=== PATIENT | female | born 1930 | race Caucasian/White ===

== ENCOUNTER 2017-11-03 11:24 | Inpatient (IN) | payer OTHER ==
[2017-11-03] VITALS (9 sets, daily range): BP systolic 109–188; BP diastolic 54–88; PULSE 60–86; RESP 16–20; TEMP 97–98.5; O2SAT 97–99
[~2017-11-03] VITALS: Ht 160 cm; Wt 43.4 kg
[~2017-11-03 11:24] MED LIST: DABI150 PO; ENAL20TA81 PO; LEVA500T PO; PROT40TA PO; TAB-TAB PO
[2017-11-03] MEDS ORDERED: PANTOPRAZOLE SODIUM 40 MG VIAL IVP ONE (12:00)
--- NOTE | 2017-11-03 12:04 | PD ---
HPI Chief Complaint: Abnormal Results Time Seen by Provider: 11:40 Travel History International Travel<30 days: No Contact w/Intl Traveler<30days: No Traveled to known affect area: No History of Present Illness HPI 87yo F with PMH of afib on xarelto, HTN was sent here by her PMD Dr. Carroll for low hemoglobin of 6.4 on routine blood work drawn 2 days ago. Pt denies any black stool, fever, cough, chest pain, sob, n/v, abdominal pain, focal weakness or numbness. Pt does have swelling in both her feet. Said she has had GI bleeds before but she has never had a colonoscopy and does not ever want one. PFSH Past Medical History Blood Disorders: No Anxiety: Yes Depression: Yes Heart Rhythm Problems: Yes (a-fib ) Cancer: No Cardiovascular Problems: Yes High Cholesterol: Yes Chest Pain: Yes Congestive Heart Failure: No Diminished Hearing: No Endocrine: No Genitourinary: No Hypertension: Yes Immune Disorder: No Implanted Vascular Access Dvce: Yes Musculoskeletal: No Neurologic: No Psychiatric: Yes Reproductive: No Respiratory: No ?: Not Dilation and Curettage (D&C): Yes Past Surgical History AICD: No Arteriovenous Shunt: No Cardiac Surgery: Yes (pace maker ) Ear Surgery: No Endocrine Surgery: No Eye Surgery: Yes (cataracts LEFT SIDE) Genitourinary Surgery: No Gynecologic Surgery: Yes (d/c) Insulin Pump: No Joint Replacement: No Oral Surgery: No Pacemaker: Yes Thoracic Surgery: No Other Surgery: Yes Social History Alcohol Use: No Tobacco Use: No Substance Use: No Allergies-Medications (Allergen,Severity, Reaction): Coded Allergies: penicillin G (Unverified Allergy, Severe, diarrhea, 11/03/17) Reported Meds & Prescriptions Reported Meds & Active Scripts Active Reported [glaucoma drops] 1 Drop OP BID Losartan (Losartan Potassium) 100 Mg Tab 100 Mg PO HS Xarelto (Rivaroxaban) 20 Mg Tab 20 Mg PO DAILY Review of Systems Except as stated in HPI: all other systems reviewed are Neg Physical Exam Narrative GENERAL: 87yo F not in distress. SKIN: Focused skin assessment warm/dry. HEAD: Atraumatic. Normocephalic. EYES: Pupils equal and round. No scleral icterus. No injection or drainage. CARDIOVASCULAR: Regular rate and rhythm. No murmur appreciated. RESPIRATORY: No accessory muscle use. Clear to auscultation. Breath sounds equal bilaterally. GASTROINTESTINAL: Abdomen soft, non-tender, nondistended. RECTAL: Brown stool, positive hemaprompt. MUSCULOSKELETAL: No obvious deformities. No clubbing. No cyanosis. No edema. NEUROLOGICAL: Awake and alert. No obvious cranial nerve deficits. Motor grossly within normal limits. Normal speech. PSYCHIATRIC: Appropriate mood and affect; insight and judgment normal. Data Data Last Documented VS Vital Signs Date Time Temp Pulse Resp B/P (MAP) Pulse Ox O2 Delivery O2 Flow Rate FiO2 11/03/17 12:39 77 18 150/62 (91) 97 Room Air 11/03/17 11:28 98.5 Orders Orders Basic Metabolic Panel (Bmp) (11/03/17 11:54) Complete Blood Count With Diff (11/03/17 11:54) Prothrombin Time / Inr (Pt) (11/03/17 11:54) Act Partial Throm Time (Ptt) (11/03/17 11:54) Type And Screen (11/03/17 11:54) Pantoprazole Inj (Protonix Inj) (11/03/17 12:00) Electrocardiogram (11/03/17 ) ^ Lab Follow Up (11/03/17 12:20) Prothrombin Complex Conc Inj (Kcentra In (11/03/17 14:00) Blood Product Administration (11/03/17 12:20) Sodium Chlor 0.9% 250 Ml Inj (Ns 250 Ml (11/03/17 12:30) Consult Cardiology (11/03/17 ) Consult Gastroenterology (11/03/17 ) Admit Order (Ed Use Only) (11/03/17 13:13) Labs Laboratory Tests Test 11/03/17 12:08 White Blood Count 4.2 TH/MM3 Red Blood Count 3.19 MIL/MM3 Hemoglobin 6.4 GM/DL Hematocrit 21.7 % Mean Corpuscular Volume 67.9 FL Mean Corpuscular Hemoglobin 19.9 PG Mean Corpuscular Hemoglobin Concent 29.3 % Red Cell Distribution Width 17.0 % Platelet Count 407 TH/MM3 Mean Platelet Volume 7.2 FL Neutrophils (%) (Auto) 65.4 % Lymphocytes (%) (Auto) 21.1 % Monocytes (%) (Auto) 10.0 % Eosinophils (%) (Auto) 2.7 % Basophils (%) (Auto) 0.8 % Neutrophils # (Auto) 2.8 TH/MM3 Lymphocytes # (Auto) 0.9 TH/MM3 Monocytes # (Auto) 0.4 TH/MM3 Eosinophils # (Auto) 0.1 TH/MM3 Basophils # (Auto) 0.0 TH/MM3 CBC Comment AUTO DIFF Differential Comment AUTO DIFF CONFIRMED Target Cells 1+ Keratocytes OCC Prothrombin Time 10.7 SEC Prothromb Time International Ratio 1.1 RATIO Activated Partial Thromboplast Time 24.7 SEC Blood Urea Nitrogen 18 MG/DL Creatinine 0.69 MG/DL Random Glucose 109 MG/DL Calcium Level 8.3 MG/DL Sodium Level 135 MEQ/L Potassium Level 4.0 MEQ/L Chloride Level 103 MEQ/L Carbon Dioxide Level 26.8 MEQ/L Anion Gap 5 MEQ/L Estimat Glomerular Filtration Rate 80 ML/MIN MDM Medical Decision Making Medical Screen Exam Complete: Yes Emergency Medical Condition: Yes Interpretation(s) EKG: Paced rhythm. No concordance. ST depression V6 only. Differential Diagnosis Diverticulitis vs. AV malformation vs. hemorrhoid vs. upper GI bleed Narrative Course 87yo F was brought in here for low hemoglobin. Pt has positive hemaprompt and on xarelto. Last dose of xarelto was last night. Labs reviewed, no leukocytosis. H/H low at 6.4/21.7. Last H/H was from 2011 and it was . BMP unremarkable. Pt given K-centra to reverse anticoagulation and will transfuse one unit of PRBC for now. Pt is well appearing with stable vital signs. Will admit patient and consult GI although pt may not want any procedures. 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 Lindsey. Will place consult. Discussed with Dr. Farrell's PA and accepted to her service. Pt has already been admitted but nurse wants to send urine since pt now said she has some dysuria and gave a urine sample. UA sent. UA showed positive nitrite, hospitalist said she will write for antibiotics. HemaPrompt Point of Care Internal Pos. & Neg. Controls: Passed Fecal Specimen Occult Blood: Positive Diagnosis Primary Impression: GI bleed Qualified Codes: K92.2 - Gastrointestinal hemorrhage, unspecified Admitting Information Admitting Physician Requests: Admit Elza Ferreira DO November 03, 2017 12:04
[2017-11-03 12:15] LABS: AUTOMATED NEUTROPHIL # 2.8 TH/MM3 (1.8-7.7); BASOPHIL % 0.8 % (0.0-2.0); EOSINOPHIL # 0.1 TH/MM3 (0-0.4); EOSINOPHIL % 2.7 % (0.0-4.0); HEMATOCRIT 21.7 % (35.0-46.0); LYMPH % 21.1 % (9.0-44.0); LYMPHOCYTE # 0.9 TH/MM3 (1.0-4.8); MEAN CELL VOLUME 67.9 FL (80.0-100.0); MEAN CORPUSCULAR HEMOGLOBIN 19.9 PG (27.0-34.0); MEAN PLATELET VOLUME 7.2 FL (7.0-11.0); MONOCYTE # 0.4 TH/MM3 (0-0.9); NEUT % 65.4 % (16.0-70.0); PLATELET COUNT 407 TH/MM3 (150-450); RED BLOOD COUNT 3.19 MIL/MM3 (4.00-5.30); WHITE BLOOD COUNT 4.2 TH/MM3 (4.0-11.0)
[2017-11-03 12:16] LABS: MEAN CORPUSCULAR HGB CONC 29.3 % (32.0-36.0)
[2017-11-03 12:18] LABS: HEMOGLOBIN 6.4 GM/DL (11.6-15.3)
[2017-11-03 12:28] LABS: CALCIUM 8.3 MG/DL (8.5-10.1)
[2017-11-03 12:29] LABS: BICARBONATE 26.8 MEQ/L (21.0-32.0); INTERNATIONAL NORMALIZED RATIO 1.1 RATIO; PROTHROMBIN TIME - PATIENT 10.7 SEC (9.8-11.6)
[2017-11-03] MEDS ORDERED: SODIUM CHLOR 0.9% 250 ML INJ 250 ML IV ONE ×2 (12:30→15:30)
[2017-11-03 12:32] LABS: CREATININE 0.69 MG/DL (0.50-1.00)
[2017-11-03 12:42] LABS: KERATOCYTES OCC (NORMAL); TARGET CELLS 1+ (NORMAL)
[2017-11-03] MEDS ORDERED: XARE20TA PO (13:07)
[2017-11-03] MEDS ORDERED: glaucoma drops OP (13:07)
[2017-11-03] MEDS ORDERED: LOSA100T PO (13:07)
[2017-11-03] MEDS ORDERED: SENNOSIDES 8.6 MG TAB PO PRN (13:45)
[2017-11-03] MEDS ORDERED: BISACODYL 10 MG SUPP RECTAL PRN (13:45)
[2017-11-03] MEDS ORDERED: ONDANSETRON HCL 4 MG/2 ML VIAL IVP PRN (13:45)
[2017-11-03] MEDS ORDERED: ACETAMINOPHEN 325 MG TAB PO PRN (13:45)
[2017-11-03] MEDS ORDERED: MAGNESIUM HYDROXIDE SUSP 30 ML CUP PO PRN (13:45)
[2017-11-03] MEDS ORDERED: NALOXONE HCL 0.4 MG/ML AMP IV PUSH PRN (13:45)
--- NOTE | 2017-11-03 13:46 | HHI.HP ---
HPI Service [facility] Primary Care Physician Suad Carroll MD Admission Diagnosis GI bleed on xarelto Diagnoses: (1) GI bleed Chief Complaint: Anemia Dark stools Travel History International Travel<30 Days: No Contact w/Intl Traveler <30 Da: No Traveled to Known Affected Are: No History of Present Illness This is a pleasant 87-year-old female patient with a known medical history of A. fib on anticoagulation, hypertension hyperlipidemia who presented to the ED with a hemoglobin of 6.4. Patient visited her PCP office this week and was called with results of anemia and sent here to the ED. Patient does state that over the past couple months she has noticed black stools with occasional bright red blood when she wipes. Patient denies any other associated symptoms such as lightheadedness, dizziness. She does admit to increasing fatigue and sleeping more often. Patient has been on Xarelto for chronic atrial fibrillation, patient is followed with Dr. Lindsey cardiology. Denies any recent fever, chills, cough, chest pain, shortness of breath, nausea, vomiting, diarrhea, abdominal pain or dysuria. Does admit to bilateral lower extremity swelling. Patient lives at home with her daughter. PCP Dr. Carroll. Review of Systems Constitutional: COMPLAINS OF: Fatigue, DENIES: Fever, Chills Eyes: DENIES: Diplopia Respiratory: DENIES: Cough, Sputum production, Shortness of breath Cardiovascular: DENIES: Chest pain, Palpitations Gastrointestinal: COMPLAINS OF: Black stools, DENIES: Abdominal pain, Bloody stools, Constipation, Diarrhea, Nausea, Vomiting Musculoskeletal: DENIES: Joint pain Hematologic/lymphatic: DENIES: Bruising Neurologic: DENIES: Abnormal gait Psychiatric: DENIES: Anxiety Except as stated in HPI: all other systems reviewed are Neg Past Family Social History Past Medical History Atrial fibrillation on Coumadin Anxiety depression Hyperlipidemia Hypertension Past Surgical History Pacemaker placement Left side cataracts Tonsillectomy Appendectomy Reported Medications Reported [glaucoma drops] 1 Drop OP BID Losartan (Losartan Potassium) 100 Mg Tab 100 Mg PO HS Xarelto (Rivaroxaban) 20 Mg Tab 20 Mg PO DAILY Allergies: Coded Allergies: penicillin G (Unverified Allergy, Severe, diarrhea, 11/03/17) Active Ordered Medications Current Medications Medications (Trade) Dose Ordered Sig/Robert Route Start Time Stop Time Status Last Admin Sodium Chloride 250 ml @ 15 mls/hr ONCE ONCE IV 11/03/17 12:30 11/04/17 05:09 (NS Flush) 2 ml UNSCH PRN IV FLUSH 11/03/17 13:45 (NS Flush) 2 ml BID IV FLUSH 11/03/17 21:00 (Tylenol) 650 mg Q4H PRN PO 11/03/17 13:45 (Zofran Inj) 4 mg Q6H PRN IVP 11/03/17 13:45 (Narcan Inj) 0.4 mg UNSCH PRN IV PUSH 11/03/17 13:45 (Destiney-Colace) 1 tab BID PO 11/03/17 21:00 (Milk Of Magnesia Liq) 30 ml Q12H PRN PO 11/03/17 13:45 (Senokot) 17.2 mg Q12H PRN PO 11/03/17 13:45 (Dulcolax Supp) 10 mg DAILY PRN RECTAL 11/03/17 13:45 (Protonix Inj) 40 mg Q12H IV PUSH 11/03/17 16:00 Sodium Chloride 250 ml @ 15 mls/hr ONCE ONCE IV 11/03/17 15:30 11/04/17 08:09 (Cozaar) 100 mg HS PO 11/03/17 21:00 (Catapres) 0.1 mg Q6H PRN PO 11/03/17 15:30 Family History Denies any significant family medical history. Social History Does admit to smoking 8 cigarettes per day. Denies any alcohol or illicit drug use. Physical Exam Vital Signs Vital Signs Date Time Temp Pulse Resp B/P (MAP) Pulse Ox O2 Delivery O2 Flow Rate FiO2 11/03/17 12:39 77 18 150/62 (91) 97 Room Air 11/03/17 11:50 97 Room Air 11/03/17 11:28 98.5 80 16 152/65 (94) 98 Physical Exam GENERAL: Well-developed, well-nourished elderly female patient in [facility]. SKIN: Warm and dry. No rash. HEAD: Normocephalic. Atraumatic. EYES: Pupils equal and round. No scleral icterus. No injection or drainage. ENT: No nasal bleeding or discharge. Mucous membranes pink and moist. NECK: Supple. Trachea midline. CARDIOVASCULAR: Regular rate and rhythm. S1, S2 noted. No murmur appreciated. RESPIRATORY: No accessory muscle use. Clear to auscultation. Breath sounds equal bilaterally. GASTROINTESTINAL: Abdomen soft, non-tender, nondistended. Normoactive bowel sounds x4. MUSCULOSKELETAL: No obvious deformities. Extremities without clubbing, cyanosis. Bilateral lower extremity edema, 2+. NEUROLOGICAL: Awake and alert. No obvious cranial nerve deficits. Motor grossly within normal limits. 5/5 muscle strength in bilateral upper and lower extremities. Normal speech. PSYCHIATRIC: Appropriate mood and affect; insight and judgment normal. Laboratory Laboratory Tests Test 11/03/17 12:08 11/03/17 13:30 White Blood Count 4.2 Red Blood Count 3.19 Hemoglobin 6.4 Hematocrit 21.7 Mean Corpuscular Volume 67.9 Mean Corpuscular Hemoglobin 19.9 Mean Corpuscular Hemoglobin Concent 29.3 Red Cell Distribution Width 17.0 Platelet Count 407 Mean Platelet Volume 7.2 Neutrophils (%) (Auto) 65.4 Lymphocytes (%) (Auto) 21.1 Monocytes (%) (Auto) 10.0 Eosinophils (%) (Auto) 2.7 Basophils (%) (Auto) 0.8 Neutrophils # (Auto) 2.8 Lymphocytes # (Auto) 0.9 Monocytes # (Auto) 0.4 Eosinophils # (Auto) 0.1 Basophils # (Auto) 0.0 CBC Comment AUTO DIFF Differential Comment AUTO DIFF CONFIRMED Target Cells 1+ Keratocytes OCC Prothrombin Time 10.7 Prothromb Time International Ratio 1.1 Activated Partial Thromboplast Time 24.7 Blood Urea Nitrogen 18 Creatinine 0.69 Random Glucose 109 Calcium Level 8.3 Sodium Level 135 Potassium Level 4.0 Chloride Level 103 Carbon Dioxide Level 26.8 Anion Gap 5 Estimat Glomerular Filtration Rate 80 Result Diagram: 11/03/17 1208 11/03/17 1208 Septic Shock Reassessment Septic shock perfusion: reassessment completed Caprini VTE Risk Assessment Caprini VTE Risk Assessment: Mod/High Risk (score >= 2) Caprini Risk Assessment Model Point Value = 1 Point Value = 2 Point Value = 3 Point Value = 5 Age 41-60 Minor surgery BMI > 25 kg/m2 Swollen legs Varicose veins or History of unexplained or recurrent spontaneous Oral contraceptives or hormone replacement Sepsis (< 1 month) Serious lung disease, including pneumonia (< 1 month) Abnormal pulmonary function Acute myocardial infarction Congestive heart failure (< 1 month) History of inflammatory bowel disease Medical patient at bed rest Age 61-74 Arthroscopic surgery Major open surgery (> 45 min) Laparoscopic surgery (> 45 min) Malignancy Confined to bed (> 72 hours) Immobilizing plaster cast Central venous access Age >= 75 History of VTE Family history of VTE Factor V Leiden Prothrombin [id number] Lupus anticoagulant Anticardiolipin antibodies Elevated serum homocysteine Heparin-induced thrombocytopenia Other congenital or acquired thrombophilia Stroke (< 1 month) Elective arthroplasty Hip, pelvis, or leg fracture Acute spinal cord injury (< 1 month) Prophylaxis Regimen Total Risk Factor Score Risk Level Prophylaxis Regimen 0-1 Low Early ambulation 2 Moderate Order ONE of the following: *Sequential Compression Device (SCD) *Heparin 5000 units SQ BID 3-4 Higher Order ONE of the following medications: *Heparin 5000 units SQ TID *Enoxaparin/Lovenox 40 mg SQ daily (WT < 150 kg, CrCl > 30 mL/min) *Enoxaparin/Lovenox 30 mg SQ daily (WT < 150 kg, CrCl > 10-29 mL/min) *Enoxaparin/Lovenox 30 mg SQ BID (WT < 150 kg, CrCl > 30 mL/min) AND/OR *Sequential Compression Device (SCD) 5 or more Highest Order ONE of the following medications: *Heparin 5000 units SQ TID (Preferred with Epidurals) *Enoxaparin/Lovenox 40 mg SQ daily (WT < 150 kg, CrCl > 30 mL/min) *Enoxaparin/Lovenox 30 mg SQ daily (WT < 150 kg, CrCl > 10-29 mL/min) *Enoxaparin/Lovenox 30 mg SQ BID (WT < 150 kg, CrCl > 30 mL/min) AND *Sequential Compression Device (SCD) Assessment and Plan Problem List: (1) GI bleed ICD Code: K92.2 - Gastrointestinal hemorrhage, unspecified Status: Acute Assessment and Plan This is a pleasant 87-year-old female patient with a known medical history of A. fib on anticoagulation, hypertension hyperlipidemia who presented to the ED with a hemoglobin of 6.4. Patient visited her PCP office this week and was called with results of anemia and sent here to the ED. Acute blood loss secondary to GI bleed with normocytic normochromic anemia. - Hemoglobin 6.4/hematocrit 21.7 on presentation. With black stools. Was given K Centra in ED. - Consult placed to GI, appreciate input recommendations. Patient is refusing colonoscopy and EGD if needed. - Type and screen, transfuse 2 units PRBC. Trend H&H. Monitor for any active bleeding. Monitor vital signs. Blood pressure has been stable. - Monitor for fluid overload. Lasix given in between PRBC transfusion. - Protonix IV BID. Abnormal UA with presence of leukocyte esterase and white blood cells. Culture pending. Follow. IV Cipro, patient allergic to penicillins. Atrial fibrillation, chronic: On Xarelto at home. On hold due to GI bleed and acute blood loss. Continue cardiac telemetry. Monitor. Hypertension, chronic: Elevated on presentation. Continue home medications. Monitor BP trends. Clonidine PRN as needed. DVT Prophylaxis: SCDs. Hold chemical prophylaxis due to GI bleed. Physician Certification 2 Midnight Certification Type: Admission for Inpatient Services Order for Inpatient Services The services are ordered in accordance with Medicare regulations or non- Medicare payer requirements, as applicable. In the case of services not specified as inpatient-only, they are appropriately provided as inpatient services in accordance with the 2-midnight benchmark. Estimated LOS (days): 3 3 days is the estimated time the patient will need to remain in the hospital, assuming treatment plan goals are met and no additional complications. Post-Hospital Plan: Not yet determined Problem Qualifiers (1) GI bleed: Qualified Codes: K92.2 - Gastrointestinal hemorrhage, unspecified Sunni Ford November 03, 2017 13:45
[2017-11-03 13:48] LABS: BILIRUBIN, URINE NEG (NEG); BLOOD, URINE NEG (NEG); GLUCOSE,URINE NEG (NEG); KETONE, URINE NEG (NEG); NITRITE,URINE POS (NEG); URINE COLOR YELLOW (YELLW/STRAW); URINE LEUKOCYTE ESTERASE SMALL (NEG)
[2017-11-03 13:53] LABS: BACTERIA, URINE MANY /hpf; WHITE BLOOD CELL CLUMPS MOD
[2017-11-03] MEDS ORDERED: PROTHROMBIN COMPLEX IV ONE (14:00)
[2017-11-03] MEDS ORDERED: FUROSEMIDE 20 MG/2 ML VIAL IV PUSH ONE (15:30)
[2017-11-03] MEDS: PANTOPRAZOLE SODIUM 40 MG VIAL IV PUSH SCH (16:14)
[2017-11-03] MEDS ORDERED: FLUCONAZOLE 100 MG TAB PO ONE (16:45)
[2017-11-03] MEDS ORDERED: PILL SPLITTER OTHER PRN (17:00)
[2017-11-03] MEDS: cloNIDine HCL 0.1 MG TAB PO PRN (17:33)
[2017-11-03] MEDS: CIPROFLOXACIN 400 MG PREMIX 200 ML IV SCH (17:33)
[2017-11-03] MEDS: SODIUM CHLORIDE 0.9% FLUSH 10 ML FLUSH IV FLUSH SCH (19:44)
[2017-11-03 19:46] LABS: INTERNATIONAL NORMALIZED RATIO 1.1 RATIO; PROTHROMBIN TIME - PATIENT 10.7 SEC (9.8-11.6)
[2017-11-03] MEDS ORDERED: DIATRIZOATE MEGLUM/DIATRIZOATE SOD 9 ML CUP PO ONE (20:00)
[2017-11-03] MEDS: DOCUSATE SODIUM 50 MG/SENNA 8.6 MG TAB PO SCH (21:11)
[2017-11-03] MEDS: LOSARTAN 50 MG TAB PO SCH (21:11)
--- NOTE | 2017-11-03 22:54 | EKG ---
Date Performed: 11/03/2017 Time Performed: 12:09:26 PTAGE: 87 years EKG: ELECTRONIC VENTRICULAR PACEMAKER When compared to previous tracing, ventricular pacing is n ow Present. Atrial flutter previouslyn seen is no longer present. ABNORMAL RHYTHM ECG PREVIOUS TRACING : 04/10/2012 22.16 DOCTOR: Bret Zarate Interpretating Date/Time 11/03/2017 17:54:14
[2017-11-03] MEDS ORDERED: IOHEXOL 350 MG/ML 10 ML VIAL (for RAD DIAG) IVCONTRAST ONE (23:46)
[2017-11-04] VITALS (10 sets, daily range): BP systolic 140–178; BP diastolic 65–108; PULSE 64–89; RESP 16–20; TEMP 96–98.5; O2SAT 96–99
--- NOTE | 2017-11-04 00:13 | RADRPT ---
EXAM DATE/TIME: 11/03/2017 23:32 [place] COMPARISON: No previous studies available for comparison. INDICATIONS : Dark stools. IV CONTRAST: 75 cc Omnipaque 350 (iohexol) IV ORAL CONTRAST: Prescribed oral contrast ingested. RADIATION DOSE: 4.83 CTDIvol (mGy) MEDICAL HISTORY : Cardiovascular disease. Hypertension. SURGICAL HISTORY : Pacemaker. ENCOUNTER: Initial ACUITY: 4 - 6 days PAIN SCALE: 5/10 LOCATION: abdomen TECHNIQUE: Volumetric scanning of the abdomen and pelvis was performed. Using automated exposure control and ad justment of the mA and/or kV according to patient size, radiation dose was kept as low as reasonably achievable to obtain optimal diagnostic quality images. DICOM format image data is available electro nically for review and comparison. FINDINGS: LOWER LUNGS: Slight scarring in the lung bases, mainly on the left LIVER: Homogeneous density without lesion. There is no dilation of the biliary tree. No calcified gallston es. SPLEEN: Normal size without lesion. PANCREAS: Within normal limits. KIDNEYS: Upper pole anterior cortex right renal cyst. No evidence of stone or hydronephrosis. ADRENAL GLANDS: Slight low density nodular prominence of the left adrenal gland. VASCULAR: Extensive atherosclerotic change with dense intimal calcifications involving aorta and branch vessels . BOWEL/MESENTERY: Distal colonic diverticulosis. No abnormal dilatation, wall thickening or focal inflammatory changes. ABDOMINAL WALL: Within normal limits. RETROPERITONEUM: There is no lymphadenopathy. BLADDER: No wall thickening or mass. REPRODUCTIVE: Calcification in uterine fibroids. Coarse right adnexal calcification INGUINAL: Fluid containing left inguinal hernia MUSCULOSKELETAL: Within normal limits for patient age. CONCLUSION: No definite acute CT findings in the abdomen or pelvis. Juan Tierney MD on November 04, 2017 at 0:07 Board Certified Radiologist. This report was verified electronically.
[2017-11-04 02:33] LABS: INTERNATIONAL NORMALIZED RATIO 1.1 RATIO; PROTHROMBIN TIME - PATIENT 10.7 SEC (9.8-11.6)
[2017-11-04] MEDS: PANTOPRAZOLE SODIUM 40 MG VIAL IV PUSH SCH ×2 (04:00→15:57)
[2017-11-04] MEDS ORDERED: FUROSEMIDE 40 MG/4 ML VIAL ONE (04:36)
[2017-11-04] MEDS ORDERED: FUROSEMIDE 20 MG/2 ML VIAL IV PUSH ONE (05:00)
[2017-11-04] MEDS: DOCUSATE SODIUM 50 MG/SENNA 8.6 MG TAB PO SCH ×2 (08:04→20:41)
[2017-11-04] MEDS: SODIUM CHLORIDE 0.9% FLUSH 10 ML FLUSH IV FLUSH SCH ×2 (08:20→20:41)
[2017-11-04] MEDS: SODIUM CHLOR 0.9% 1000 ML INJ 1,000 ML IV SCH (10:15)
[2017-11-04 10:34] LABS: AUTOMATED NEUTROPHIL # 3.6 TH/MM3 (1.8-7.7); BASOPHIL % 0.3 % (0.0-2.0); EOSINOPHIL # 0.1 TH/MM3 (0-0.4); EOSINOPHIL % 1.6 % (0.0-4.0); HEMATOCRIT 32.4 % (35.0-46.0); LYMPH % 16.4 % (9.0-44.0); LYMPHOCYTE # 0.8 TH/MM3 (1.0-4.8); MEAN CELL VOLUME 74.2 FL (80.0-100.0); MEAN CORPUSCULAR HEMOGLOBIN 22.9 PG (27.0-34.0); MEAN CORPUSCULAR HGB CONC 30.9 % (32.0-36.0); MONO % 9.6 % (0.0-8.0); MONOCYTE # 0.5 TH/MM3 (0-0.9); NEUT % 72.1 % (16.0-70.0); PLATELET COUNT 393 TH/MM3 (150-450); RED BLOOD COUNT 4.36 MIL/MM3 (4.00-5.30); RED CELL DISTRIBUTION WIDTH 20.5 % (11.6-17.2)
[2017-11-04] MEDS ORDERED: RIVAROXABAN 20 MG TAB PO ONE (10:45)
[2017-11-04 10:54] LABS: BICARBONATE 32.4 MEQ/L (21.0-32.0); CALCIUM 8.7 MG/DL (8.5-10.1)
[2017-11-04 10:55] LABS: PROTHROMBIN TIME - PATIENT 10.4 SEC (9.8-11.6)
[2017-11-04 10:58] LABS: CREATININE 0.62 MG/DL (0.50-1.00)
--- NOTE | 2017-11-04 11:19 | HHI.PR ---
Subjective Remarks Follow-up GI bleed tolerate liquid diet with no abdominal pain, nausea or vomiting. No bowel movement overnight. Patient received 2 units PRBCs. Awaiting repeat H&H. Otherwise stable, will continue IV fluids. Await urine culture. Gastroenterology in to see patient today, will administer 1 dose Xarelto today. Possible colonoscopy on Monday morning. Objective Vitals Vital Signs Date Time Temp Pulse Resp B/P (MAP) Pulse Ox O2 Delivery O2 Flow Rate FiO2 11/04/17 08:00 98.5 64 17 173/78 (109) 98 11/04/17 05:20 97.6 64 18 156/80 11/04/17 04:32 96.0 77 16 160/108 97 11/04/17 02:10 96.3 68 18 140/71 96 11/04/17 00:00 96.2 72 20 145/67 (93) 99 11/03/17 20:00 97.0 60 20 109/54 (72) 99 11/03/17 19:53 97 21 11/03/17 18:28 129/83 (98) 11/03/17 16:00 97.2 86 20 188/79 (115) 99 11/03/17 15:21 99 21 11/03/17 15:00 85 17 168/88 (114) 11/03/17 14:10 75 18 172/75 (107) 99 Room Air 11/03/17 12:39 77 18 150/62 (91) 97 Room Air 11/03/17 11:50 97 Room Air 11/03/17 11:28 98.5 80 16 152/65 (94) 98 I/O 11/03/17 11/03/17 11/03/17 11/04/17 11/04/17 11/04/17 07:00 15:00 23:00 07:00 15:00 23:00 Intake Total 880 ml 940 ml 400 ml Output Total 300 ml 2100 ml Balance -300 ml 880 ml -1160 ml 400 ml Intake Oral 600 ml 240 ml IV Total 280 ml Packed Cells 400 ml 400 ml Blood Product IV Normal Saline Flush 300 ml Output Urine Total 300 ml 2100 ml # Voids 1 1 Result Diagram: 11/04/17 1015 11/04/17 1015 Imaging Last Impressions Abdomen/Pelvis CT 11/03/17 0000 Signed Impressions: Service Date/Time: Friday, November 03, 2017 23:32 - CONCLUSION: No definite acute CT findings in the abdomen or pelvis. Juan Tierney MD Objective Remarks GENERAL: Well-developed, well-nourished elderly female patient in [facility]. SKIN: Warm and dry. No rash. HEAD: Normocephalic. Atraumatic. EYES: Pupils equal and round. No scleral icterus. No injection or drainage. ENT: No nasal bleeding or discharge. Mucous membranes pink and moist. NECK: Supple. Trachea midline. CARDIOVASCULAR: Regular rate and rhythm. S1, S2 noted. No murmur appreciated. RESPIRATORY: No accessory muscle use. Clear to auscultation. Breath sounds equal bilaterally. GASTROINTESTINAL: Abdomen soft, non-tender, nondistended. Normoactive bowel sounds x4. MUSCULOSKELETAL: No obvious deformities. Extremities without clubbing, cyanosis. Bilateral lower extremity edema, 2+. NEUROLOGICAL: Awake and alert. No obvious cranial nerve deficits. Motor grossly within normal limits. 5/5 muscle strength in bilateral upper and lower extremities. Normal speech. PSYCHIATRIC: Appropriate mood and affect; insight and judgment normal. A/P Problem List: (1) GI bleed ICD Code: K92.2 - Gastrointestinal hemorrhage, unspecified Status: Acute Assessment and Plan This is a pleasant 87-year-old female patient with a known medical history of A. fib on anticoagulation, hypertension hyperlipidemia who presented to the ED with a hemoglobin of 6.4. Patient visited her PCP office this week and was called with results of anemia and sent here to the ED. Acute blood loss secondary to GI bleed with normocytic normochromic anemia. - Hemoglobin 6.4/hematocrit 21.7 on presentation. With black stools. Was given K Centra in ED. - Consult placed to GI, appreciate input recommendations. Gastroenterology in to see patient this morning plan for colonoscopy on Monday morning. Patient agreeable. We will give one-time dose of Xarelto today with clearance from GI. Hold tomorrow. - Type and screen, transfuse 2 units PRBC. Awaiting H&H this morning. Monitor for any active bleeding. Monitor vital signs. Blood pressure has been stable. - Monitor for fluid overload. Lasix given in between PRBC transfusion. - Protonix IV BID. - Supportive care. Abnormal UA with presence of leukocyte esterase and white blood cells. Culture pending. Follow. IV Cipro, patient allergic to penicillins. Will add Pyridium for dysuria complaints. Atrial fibrillation, chronic: On Xarelto at home. Will give one-time dose today , hold tomorrow for preparation and colonoscopy on Monday morning. Continue cardiac telemetry. Monitor. Has been stable. Hypertension, chronic: Elevated on presentation. Continue home medications. Monitor BP trends. Clonidine PRN as needed. Lower extremity edema, no history of CHF. Chest x-ray clear. Lasix given 1. Gentle hydration for UTI. Monitor overload. Encourage elevation. DVT Prophylaxis: SCDs. Hold chemical prophylaxis due to GI bleed. Problem Qualifiers (1) GI bleed: Qualified Codes: K92.2 - Gastrointestinal hemorrhage, unspecified Sunni Ford November 04, 2017 11:19
[2017-11-04 11:49] LABS: OVALOCYTES 1+ (NORMAL)
--- NOTE | 2017-11-04 12:00 | RADRPT ---
EXAM DATE/TIME: 11/04/2017 11:10 [place] COMPARISON: No previous studies available for comparison. INDICATIONS : Swelling. MEDICAL HISTORY : Cardiovascular disease. Hypertension. SURGICAL HISTORY : Pacemaker. ENCOUNTER: Initial ACUITY: 1 day PAIN SCORE: 0/10 LOCATION: Bilateral leg. TECHNIQUE: Venous ultrasound of the left and right leg was performed from the inguinal ligament to the proximal calf. Real-time, color Doppler and spectral tracing, compression and augmentation techniques were us ed. FINDINGS: RIGHT LEG: There is normal compressibility of the deep venous system from the inguinal region to the proximal ca lf. No echogenic clot is seen in the lumen of the common femoral, femoral, popliteal, and posterior tibial veins. There is a normal response of the venous system to proximal and distal augmentation an d respiration. LEFT LEG: There is normal compressibility of the deep venous system from the inguinal region to the proximal ca lf. No echogenic clot is seen in the lumen of the common femoral, femoral, popliteal, and posterior tibial veins. There is a normal response of the venous system to proximal and distal augmentation an d respiration. CONCLUSION: No DVT is identified within either lower extremity. Juan Masterson MD on November 04, 2017 at 11:57 Board Certified Radiologist. This report was verified electronically.
--- NOTE | 2017-11-04 12:15 | MB ---
cc: Gaye Gamez MD DATE: 11/04/2017 REFERRING PHYSICIAN: Dr. Farrell DATE OF : 1930 REASON FOR REFERRAL: Anemia. Questionable GI bleed. HISTORY OF PRESENT ILLNESS: Mrs. Bailey is an 87-year-old lady with multiple medical problems who came to the emergency room referred by her primary care doctor for a low hemoglobin. The patient states she had some black stool and occasional bright red blood per rectum a couple of months ago. She had some small episodes recently. Denies any nausea, vomiting, constipation, diarrhea or weight loss. She has a very good appetite. Never had an endoscopy or a colonoscopy. She states she refused in the past. The patient reports some fatigue and increased sleepiness recently, but no other symptoms. PAST MEDICAL HISTORY: Atrial fibrillation, high blood pressure, hyperlipidemia, anxiety. PAST SURGICAL HISTORY: Pacemaker placement, left side cataract surgery, tonsillectomy and appendectomy. MEDICATIONS: Glaucoma drops, Losartan, Xarelto. ALLERGIES: PENICILLIN. FAMILY HISTORY: No family history of colon cancer or any other GI pathology. SOCIAL HISTORY: Smokes 8 cigarettes per day. Denies any drug use or alcohol use. REVIEW OF SYSTEMS: CONSTITUTIONAL: She denies any fever, chills, weight loss or weight gain. ENT: No alteration of baseline hearing or visual acuity. PULMONARY: Denies any chest pain, shortness of breath. GASTROINTESTINAL: As above. GENITOURINARY: Denies dysuria, hematuria. HEMATOLOGICAL: No history of anemia or bleeding disorder. SKIN: No alteration of baseline skin lesion. NEUROLOGIC: No history of TIA or CVA kind of symptoms. PHYSICAL EXAMINATION: GENERAL: On clinical exam the patient is sitting comfortably in bed, in no acute distress. VITAL SIGNS: Temperature is 97.6, pulse is 64, respirations 18, blood pressure 156/80, saturation 97. HEENT: PERRLA. NECK: No JVD. No lymphadenopathy. CHEST: Clear to auscultation and palpation. HEART: S1, S2. No murmur. ABDOMEN: Soft, nontender. Bowel sounds are present. BEVERAGE HOST: Awake, alert, oriented x3. No focal signs identified. LABORATORY DATA: Her hemoglobin on admission was 6.4 with an MCV of 67, platelets 307. White count normal. PT/INR was normal. Her chemistry was essentially negative, was within normal limit. IMAGING STUDIES: She had a CT abdomen and pelvis which was suggestive of normal CT. ASSESSMENT: Ms. Bailey is a very pleasant 79-year-old lady admitted with anemia, seems to be microcytic, most likely chronic. No indication of active bleed at this time. RECOMMENDATION: Okay to give her regular food today, clear liquids tomorrow. Okay to put her on Xarelto today, hold tomorrow and Monday morning. EGD and colonoscopy in the morning. Discussed in detail about the risks and benefits, and she is agreeing with it. I would like to thank Dr. Sunni Johnson and Dr. Farrell for referring her to our office for consultation. Further recommendation will depend on the patient's clinical status and the above results. Gaye Gamez MD BSB/SB , 11:52 AM , 12:14 PM
[2017-11-04] MEDS: PHENAZOPYRIDINE HCL 100 MG TAB PO SCH ×2 (13:47→20:41)
[2017-11-04] MEDS: SODIUM CHLORIDE 0.9% FLUSH 10 ML FLUSH IV FLUSH PRN (15:59)
[2017-11-04] MEDS: CIPROFLOXACIN 400 MG PREMIX 200 ML IV SCH (16:51)
[2017-11-04 18:02] LABS: INTERNATIONAL NORMALIZED RATIO 1.2 RATIO; PROTHROMBIN TIME - PATIENT 12.3 SEC (9.8-11.6)
[2017-11-04] MEDS ORDERED: TIMO0.5S4 EACH EYE (18:29)
[2017-11-04] MEDS: LOSARTAN 50 MG TAB PO SCH (20:41)
[2017-11-04] MEDS: cloNIDine HCL 0.1 MG TAB PO PRN (20:45)
[2017-11-04 21:39] LABS: INTERNATIONAL NORMALIZED RATIO 1.1 RATIO; PROTHROMBIN TIME - PATIENT 11.2 SEC (9.8-11.6)
[2017-11-05] VITALS (9 sets, daily range): BP systolic 144–206; BP diastolic 67–85; PULSE 59–64; RESP 16–20; TEMP 95.9–98.6; O2SAT 95–99
[2017-11-05] MEDS: PANTOPRAZOLE SODIUM 40 MG VIAL IV PUSH SCH ×2 (04:36→15:32)
[2017-11-05] MEDS: SODIUM CHLORIDE 0.9% FLUSH 10 ML FLUSH IV FLUSH PRN ×2 (04:36→15:32)
[2017-11-05] MEDS: PHENAZOPYRIDINE HCL 100 MG TAB PO SCH ×3 (04:36→21:03)
[2017-11-05] MEDS ORDERED: PEG (High)/E-LYTE SOLN 4000 ML BTL PO ONE (05:45)
[2017-11-05] MEDS: TIMOLOL 0.5% EACH EYE SCH (08:30)
[2017-11-05] MEDS: DOCUSATE SODIUM 50 MG/SENNA 8.6 MG TAB PO SCH ×2 (08:32→20:56)
[2017-11-05 08:34] LABS: INTERNATIONAL NORMALIZED RATIO 1.1 RATIO; PROTHROMBIN TIME - PATIENT 11.1 SEC (9.8-11.6)
[2017-11-05] MEDS: SODIUM CHLORIDE 0.9% FLUSH 10 ML FLUSH IV FLUSH SCH ×2 (08:34→20:56)
--- NOTE | 2017-11-05 09:47 | HHI.PR ---
Subjective Remarks Follow-up GI bleed. Patient seen and examined, sitting up in chair comfortably no apparent distress. Status post 2 unit PRBC, hemoglobin stable. Denies any acute events. No pain. Tolerating p.o. intake, no abdominal pain, nausea or vomiting. Plan for colonoscopy tomorrow. Objective Vitals Vital Signs Date Time Temp Pulse Resp B/P (MAP) Pulse Ox O2 Delivery O2 Flow Rate FiO2 11/05/17 08:06 95 21 11/05/17 04:00 96.7 62 20 152/69 (96) 95 11/05/17 00:00 96.5 63 20 144/67 (92) 97 11/04/17 20:00 97 21 11/04/17 20:00 96.1 70 20 167/72 (103) 98 11/04/17 19:20 71 11/04/17 16:00 98.1 69 18 145/65 (91) 97 11/04/17 12:00 97.2 65 17 178/77 (110) 97 11/04/17 11:43 97 I/O 11/04/17 11/04/17 11/04/17 11/05/17 11/05/17 11/05/17 07:00 15:00 23:00 07:00 15:00 23:00 Intake Total 940 ml 400 ml 960 ml 120 ml Output Total 2100 ml 1250 ml Balance -1160 ml 400 ml 960 ml -1130 ml Intake Oral 240 ml 960 ml 120 ml Packed Cells 400 ml 400 ml Blood Product IV Normal Saline Flush 300 ml Output Urine Total 2100 ml 1250 ml # Voids 1 6 # Bowel Movements 0 1 Result Diagram: 11/04/17 1015 11/04/17 1015 Imaging Last Impressions Lower Extremity Ultrasound 11/04/17 0000 Signed Impressions: Service Date/Time: Saturday, November 04, 2017 11:10 - CONCLUSION: No DVT is identified within either lower extremity. Juan Masterson MD Abdomen/Pelvis CT 11/03/17 0000 Signed Impressions: Service Date/Time: Friday, November 03, 2017 23:32 - CONCLUSION: No definite acute CT findings in the abdomen or pelvis. Juan Tierney MD Objective Remarks GENERAL: Well-developed, well-nourished elderly female patient in [place]. SKIN: Warm and dry. No rash. HEAD: Normocephalic. Atraumatic. EYES: Pupils equal and round. No scleral icterus. No injection or drainage. ENT: No nasal bleeding or discharge. Mucous membranes pink and moist. NECK: Supple. Trachea midline. CARDIOVASCULAR: Regular rate and rhythm. S1, S2 noted. No murmur appreciated. RESPIRATORY: No accessory muscle use. Clear to auscultation. Breath sounds equal bilaterally. GASTROINTESTINAL: Abdomen soft, non-tender, nondistended. Normoactive bowel sounds x4. MUSCULOSKELETAL: No obvious deformities. Extremities without clubbing, cyanosis. Bilateral lower extremity edema, 2+. NEUROLOGICAL: Awake and alert. No obvious cranial nerve deficits. Motor grossly within normal limits. 5/5 muscle strength in bilateral upper and lower extremities. Normal speech. PSYCHIATRIC: Appropriate mood and affect; insight and judgment normal. A/P Problem List: (1) GI bleed ICD Code: K92.2 - Gastrointestinal hemorrhage, unspecified Status: Acute Assessment and Plan This is a pleasant 87-year-old female patient with a known medical history of A. fib on anticoagulation, hypertension hyperlipidemia who presented to the ED with a hemoglobin of 6.4. Patient visited her PCP office this week and was called with results of anemia and sent here to the ED. Acute blood loss secondary to GI bleed with normocytic normochromic anemia. - Hemoglobin 6.4/hematocrit 21.7 on presentation. With black stools. Was given K Centra in ED. - Consult placed to GI, appreciate input recommendations. Gastroenterology in to see patient this morning plan for colonoscopy on Monday. Patient agreeable. We will give one-time dose of Xarelto today with clearance from GI. Hold tomorrow. - Type and screen, transfuse 2 units PRBC. H&H stable. Follow H&H trends.. Monitor for any active bleeding. Monitor vital signs. Blood pressure has been stable. - Monitor for fluid overload. Protonix IV BID. Supportive care. Urinary tract infection, growing E. coli. IV Cipro, patient allergic to penicillins. Will add Pyridium for dysuria complaints. Atrial fibrillation, chronic: On Xarelto at home. Will give one-time dose today , hold tomorrow for preparation and colonoscopy on Monday. Continue cardiac telemetry. Monitor. Has been stable. Hypertension, chronic: Elevated on presentation. Continue home medications. Monitor BP trends. Clonidine PRN as needed. Lower extremity edema, no history of CHF. improved. Chest x-ray clear. Lasix given 1. Gentle hydration for UTI. Monitor overload. Encourage elevation. DVT Prophylaxis: SCDs. Hold chemical prophylaxis due to GI bleed. Problem Qualifiers (1) GI bleed: Qualified Codes: K92.2 - Gastrointestinal hemorrhage, unspecified Sunni Ford November 05, 2017 09:47
[2017-11-05] MEDS: SODIUM CHLOR 0.9% 1000 ML INJ 1,000 ML IV SCH (10:04)
[2017-11-05 14:44] LABS: PROTHROMBIN TIME - PATIENT 10.6 SEC (9.8-11.6)
[2017-11-05] MEDS: CIPROFLOXACIN 400 MG PREMIX 200 ML IV SCH (16:48)
[2017-11-05 20:02] LABS: PROTHROMBIN TIME - PATIENT 10.5 SEC (9.8-11.6)
[2017-11-05] MEDS: LOSARTAN 50 MG TAB PO SCH (20:56)
[2017-11-05] MEDS: cloNIDine HCL 0.1 MG TAB PO PRN (22:04)
[2017-11-06] VITALS (8 sets, daily range): BP systolic 115–219; BP diastolic 50–88; PULSE 59–76; RESP 17–18; TEMP 95.8–97.9; O2SAT 92–99
[2017-11-06 02:27] LABS: INTERNATIONAL NORMALIZED RATIO 1.1 RATIO; PROTHROMBIN TIME - PATIENT 10.7 SEC (9.8-11.6)
[2017-11-06] MEDS: PHENAZOPYRIDINE HCL 100 MG TAB PO SCH ×2 (05:33→16:08)
[2017-11-06] MEDS: PANTOPRAZOLE SODIUM 40 MG VIAL IV PUSH SCH (05:33)
[2017-11-06] MEDS: SODIUM CHLORIDE 0.9% FLUSH 10 ML FLUSH IV FLUSH PRN ×2 (05:33→05:34)
[2017-11-06] MEDS: TIMOLOL 0.5% EACH EYE SCH (09:00)
[2017-11-06] MEDS: SODIUM CHLORIDE 0.9% FLUSH 10 ML FLUSH IV FLUSH SCH (09:00)
[2017-11-06] MEDS: DOCUSATE SODIUM 50 MG/SENNA 8.6 MG TAB PO SCH (09:00)
[2017-11-06] MEDS: cloNIDine HCL 0.1 MG TAB PO PRN ×2 (09:09→18:00)
[2017-11-06] MEDS: SODIUM CHLOR 0.9% 1000 ML INJ 1,000 ML IV SCH (09:11)
[2017-11-06 09:17] LABS: PROTHROMBIN TIME - PATIENT 10.6 SEC (9.8-11.6)
--- NOTE | 2017-11-06 09:51 | HHI.PR ---
Subjective Remarks Follow-up GI bleed. Patient seen and examined, walking around hallways with PT. Doing well. No weakness. No further GI bleeding or dark stools. Plan for colonoscopy this afternoon. Depending on results patient will be discharged today. Labs are stable. Vital signs are stable. Afebrile. No acute complaints. Objective Vitals Vital Signs Date Time Temp Pulse Resp B/P (MAP) Pulse Ox O2 Delivery O2 Flow Rate FiO2 11/06/17 08:00 97.9 62 18 193/88 (123) 98 11/06/17 06:00 95.8 61 18 206/82 (123) 96 11/06/17 02:00 96.0 59 18 164/82 (109) 99 11/05/17 23:44 59 11/05/17 22:36 95.9 64 18 206/85 (125) 99 11/05/17 22:00 96 21 11/05/17 16:00 98.0 62 17 160/70 (100) 95 11/05/17 12:00 98.6 61 16 158/68 (98) 97 I/O 11/05/17 11/05/17 11/05/17 11/06/17 11/06/17 11/06/17 07:00 15:00 23:00 07:00 15:00 23:00 Intake Total 120 ml Output Total 1250 ml Balance -1130 ml Intake Oral 120 ml Output Urine Total 1250 ml # Bowel Movements 1 Result Diagram: 11/04/17 1015 11/04/17 1015 Imaging Last Impressions Lower Extremity Ultrasound 11/04/17 0000 Signed Impressions: Service Date/Time: Saturday, November 04, 2017 11:10 - CONCLUSION: No DVT is identified within either lower extremity. Juan Masterson MD Abdomen/Pelvis CT 11/03/17 0000 Signed Impressions: Service Date/Time: Friday, November 03, 2017 23:32 - CONCLUSION: No definite acute CT findings in the abdomen or pelvis. Juan Tierney MD Objective Remarks GENERAL: Well-developed, well-nourished elderly female patient in [facility]. SKIN: Warm and dry. No rash. HEAD: Normocephalic. Atraumatic. EYES: Pupils equal and round. No scleral icterus. No injection or drainage. ENT: No nasal bleeding or discharge. Mucous membranes pink and moist. NECK: Supple. Trachea midline. CARDIOVASCULAR: Regular rate and rhythm. S1, S2 noted. No murmur appreciated. RESPIRATORY: No accessory muscle use. Clear to auscultation. Breath sounds equal bilaterally. GASTROINTESTINAL: Abdomen soft, non-tender, nondistended. Normoactive bowel sounds x4. MUSCULOSKELETAL: No obvious deformities. Extremities without clubbing, cyanosis. Bilateral lower extremity edema, 2+. NEUROLOGICAL: Awake and alert. No obvious cranial nerve deficits. Motor grossly within normal limits. 5/5 muscle strength in bilateral upper and lower extremities. Normal speech. PSYCHIATRIC: Appropriate mood and affect; insight and judgment normal. A/P Problem List: (1) GI bleed ICD Code: K92.2 - Gastrointestinal hemorrhage, unspecified Status: Acute Assessment and Plan This is a pleasant 87-year-old female patient with a known medical history of A. fib on anticoagulation, hypertension hyperlipidemia who presented to the ED with a hemoglobin of 6.4. Patient visited her PCP office this week and was called with results of anemia and sent here to the ED. Acute blood loss secondary to GI bleed with normocytic normochromic anemia. - Hemoglobin 6.4/hematocrit 21.7 on presentation. With black stools. Was given K Centra in ED. - Status post 2 units PRBS transfusion. H&H stable. Follow H&H trends.. Monitor for any active bleeding. Monitor vital signs. Blood pressure has been stable. - Consult placed to GI, appreciate input recommendations. Colonoscopy today. Patient agreeable. Xarelto on hold. - Monitor for fluid overload. Protonix IV BID. Supportive care. Urinary tract infection, growing E. coli. IV Cipro, patient allergic to penicillins. Will change IV to PO. Continue Pyridium for dysuria complaints. Atrial fibrillation, chronic: On Xarelto at home. On hold for colonoscopy today. Continue cardiac telemetry. Monitor. Has been stable. Hypertension, chronic: Elevated on presentation. Continue home medications. Monitor BP trends. Still elevated. Patient refusing anything other than clonidine. Clonidine PRN as needed. Lower extremity edema, no history of CHF. Improved. Chest x-ray clear. Lasix given 1. Gentle hydration for UTI. Monitor overload. Encourage elevation. DVT Prophylaxis: SCDs. Hold chemical prophylaxis due to GI bleed. Problem Qualifiers (1) GI bleed: Qualified Codes: K92.2 - Gastrointestinal hemorrhage, unspecified Logan,Sunni YARN CARRIER November 06, 2017 09:51
[2017-11-06] MEDS ORDERED: CIPROFLOXACIN 250 MG TAB PO SCH (10:00)
[2017-11-06] MEDS ORDERED: amLODIPine BESYLATE 5 MG TAB PO SCH (12:15)
[2017-11-06] MEDS ORDERED: EPINEPHrine HCL (1:10,000) 1 MG/10 ML SYRINGE OTHER ONE ×2 (14:10→14:35)
--- NOTE | 2017-11-06 17:26 | HHI.DCPOC ---
Discharge Care Plan Diagnosis: (1) GI bleed (2) Atrial fibrillation (3) Gastritis (4) UTI (urinary tract infection) Goals to Promote Your Health * To prevent worsening of your condition and complications * To maintain your health at the optimal level Directions to Meet Your Goals Take your medications as prescribed Follow your dietary instruction Follow activity as directed Keep your appointments as scheduled Take your immunizations and boosters as scheduled If your symptoms worsen call your PCP, if no PCP go to Urgent Care Center or Emergency Room Smoking is Dangerous to Your Health. Avoid second hand smoke Call the 24-hour hour crisis hotline for domestic abuse at Sunni Ford November 06, 2017 17:26
[2017-11-06] MEDS ORDERED: AMLO5 PO (17:28)
[2017-11-06] MEDS ORDERED: PANT40TA3 PO (17:28)
[2017-11-06] MEDS ORDERED: CIPR250T52 PO (17:28)
--- NOTE | 2017-11-06 17:36 | HHI.DS ---
Discharge Summary Admission Date November 03, 2017 at 13:15 Discharge Date: November 06, 2017 Admitting Diagnosis GI bleed on xarelto (1) GI bleed ICD Code: K92.2 - Gastrointestinal hemorrhage, unspecified Status: Acute Procedures EGD and colonoscopy. Brief History - From Admission This is a pleasant 87-year-old female patient with a known medical history of A. fib on anticoagulation, hypertension hyperlipidemia who presented to the ED with a hemoglobin of 6.4. Patient visited her PCP office this week and was called with results of anemia and sent here to the ED. Patient does state that over the past couple months she has noticed black stools with occasional bright red blood when she wipes. Patient denies any other associated symptoms such as lightheadedness, dizziness. She does admit to increasing fatigue and sleeping more often. Patient has been on Xarelto for chronic atrial fibrillation, patient is followed with Dr. Lindsey cardiology. Denies any recent fever, chills, cough, chest pain, shortness of breath, nausea, vomiting, diarrhea, abdominal pain or dysuria. Does admit to bilateral lower extremity swelling. Patient lives at home with her daughter. PCP Dr. Carroll. CBC/BMP: 11/04/17 1015 11/04/17 1015 Significant Findings Laboratory Tests Test 11/03/17 19:28 11/04/17 01:45 11/04/17 10:15 11/04/17 16:15 Hemoglobin 10.0 GM/DL (11.6-15.3) Hematocrit 32.4 % (35.0-46.0) Mean Corpuscular Volume 74.2 FL (80.0-100.0) Mean Corpuscular Hemoglobin 22.9 PG (27.0-34.0) Mean Corpuscular Hemoglobin Concent 30.9 % (32.0-36.0) Red Cell Distribution Width 20.5 % (11.6-17.2) Neutrophils (%) (Auto) 72.1 % (16.0-70.0) Monocytes (%) (Auto) 9.6 % (0.0-8.0) Lymphocytes # (Auto) 0.8 TH/MM3 (1.0-4.8) Ovalocytes 1+ (NORMAL) Random Glucose 110 MG/DL (74-106) Chloride Level 97 MEQ/L (98-107) Carbon Dioxide Level 32.4 MEQ/L (21.0-32.0) Prothrombin Time 12.3 SEC (9.8-11.6) Test 11/04/17 21:24 11/05/17 07:58 11/05/17 14:20 11/05/17 19:30 Test 11/06/17 02:00 11/06/17 08:10 Imaging Last Impressions Lower Extremity Ultrasound 11/04/17 0000 Signed Impressions: Service Date/Time: Saturday, November 04, 2017 11:10 - CONCLUSION: No DVT is identified within either lower extremity. Juan Masterson MD Abdomen/Pelvis CT 11/03/17 0000 Signed Impressions: Service Date/Time: Friday, November 03, 2017 23:32 - CONCLUSION: No definite acute CT findings in the abdomen or pelvis. Juan Tierney MD PE at Discharge GENERAL: Well-developed, well-nourished elderly female patient in [facility]. SKIN: Warm and dry. No rash. HEAD: Normocephalic. Atraumatic. EYES: Pupils equal and round. No scleral icterus. No injection or drainage. ENT: No nasal bleeding or discharge. Mucous membranes pink and moist. NECK: Supple. Trachea midline. CARDIOVASCULAR: Regular rate and rhythm. S1, S2 noted. No murmur appreciated. RESPIRATORY: No accessory muscle use. Clear to auscultation. Breath sounds equal bilaterally. GASTROINTESTINAL: Abdomen soft, non-tender, nondistended. Normoactive bowel sounds x4. MUSCULOSKELETAL: No obvious deformities. Extremities without clubbing, cyanosis. NEUROLOGICAL: Awake and alert. No obvious cranial nerve deficits. Motor grossly within normal limits. 5/5 muscle strength in bilateral upper and lower extremities. Normal speech. PSYCHIATRIC: Appropriate mood and affect; insight and judgment normal. Pt update on day of discharge Follow-up GI bleed. Patient seen and examined, walking around hallways with PT. Doing well. No weakness. No further GI bleeding or dark stools. Plan for colonoscopy this afternoon. Depending on results patient will be discharged today. Labs are stable. Vital signs are stable. Afebrile. No acute complaints. Hospital Course This is a pleasant 87-year-old female patient with a known medical history of A. fib on anticoagulation, hypertension hyperlipidemia who presented to the ED with a hemoglobin of 6.4. Patient visited her PCP office this week and was called with results of anemia and sent here to the ED. Acute blood loss secondary to GI bleed with normocytic normochromic anemia. Hemoglobin 6.4/ hematocrit 21.7 on presentation. With black stools. Was given K Centra in ED. Status post 2 units PRBS transfusion. H&H stable. Consult placed to GI, appreciate input recommendations. Colonoscopy and EGD today, results reviewed with patient and son. Will restart on Xarelto. F/u GI and cardiology outpatient for further recommendations regarding anticoagulant recommendations. Protonix 40 mg daily. UTI found with E coli. Was placed IV Cipro, was given Pyridium for dysuria complaints. Atrial fibrillation, chronic: On Xarelto at home. Will restart. Follow with Dr. Lindsey outpatient. Hypertension, chronic: Elevated on presentation. Continue home Losartan. Started on Amlodipine. BP trends WNL. Follow with outpatient PCP and cards. Pt Condition on Discharge: Stable Discharge Disposition: Discharge Home Discharge Time: > 30 minutes Discharge Instructions DIET: Follow Instructions for: Heart Healthy Diet Speech Therapy-Diet Recommends: Regular Activities you can perform: Regular-No Restrictions Follow up Referrals: Cardiology - 2 Weeks with Herson Lindsey MD PCP Follow-up - 1 Week New Medications: Amlodipine (Norvasc) 5 Mg Tab 5 MG PO DAILY for HTN for 30 Days, #30 TAB Ciprofloxacin (Cipro) 250 Mg Tab 250 MG PO Q12HR for UTI for 3 Days, #6 TAB Pantoprazole (Pantoprazole) 40 Mg Tab 40 MG PO DAILY for GI for 14 Days, #14 TAB Continued Medications: Losartan (Losartan) 100 Mg Tab 100 MG PO HS for Blood Pressure Management, #30 TAB 0 Refills Rivaroxaban (Xarelto) 20 Mg Tab 20 MG PO DAILY for Blood Clot Prevention, TAB 0 Refills Timolol Opth Gel (Timoptic-Xe Opth Gel) 0.5 % Gel 1 DROP EACH EYE DAILY for Glaucoma, #1 BOTTLE 0 Refills [glaucoma drops] () 1 DROP OP BID Sunni Ford November 06, 2017 17:36
[2017-11-07] MEDS ORDERED: PANTOPRAZOLE SOD 40 MG DELAYED RELEASE TAB PO SCH (09:00)
== END 2017-11-06 19:58 | disposition home or self-care (01) | DRG 378 ==
LOC: PHED 11:24 → PHEDA 13:15 → PH3A 14:47
PROVIDERS: ADMIT Hospitalist; ATTEND Hospitalist
PROC: 30233N1 Transfusion of Nonautologous Red Blood Cells into Peripheral Vein, Percutaneous Approach (ICD-10-PCS; principal; 2017-11-04)
PROC: 3E0G8GC Introduction of Other Therapeutic Substance into Upper GI, Via Natural or Artificial Opening Endoscopic (ICD-10-PCS; 2017-11-06)
PROC: 0W3P8ZZ Control Bleeding in Gastrointestinal Tract, Via Natural or Artificial Opening Endoscopic (ICD-10-PCS; 2017-11-06)
PROC: 0DBP8ZZ Excision of Rectum, Via Natural or Artificial Opening Endoscopic (ICD-10-PCS; 2017-11-06)
PROC: 3E0H8TZ Introduction of Destructive Agent into Lower GI, Via Natural or Artificial Opening Endoscopic (ICD-10-PCS; 2017-11-06)
PROC: 0W3P8ZZ Control Bleeding in Gastrointestinal Tract, Via Natural or Artificial Opening Endoscopic (ICD-10-PCS; 2017-11-06 13:51)
DX: K29.71 Gastritis, unspecified, with bleeding (principal); D62 Acute posthemorrhagic anemia; K55.21 Angiodysplasia of colon with hemorrhage; N39.0 Urinary tract infection, site not specified; I48.2 Chronic atrial fibrillation; E78.00 Pure hypercholesterolemia, unspecified; I10 Essential (primary) hypertension; E78.5 Hyperlipidemia, unspecified; R60.0 Localized edema; B96.20 Unspecified Escherichia coli [E. coli] as the cause of diseases classified elsewhere; K64.8 Other hemorrhoids; K62.1 Rectal polyp; F17.210 Nicotine dependence, cigarettes, uncomplicated; Z79.01 Long term (current) use of anticoagulants; Z95.0 Presence of cardiac pacemaker
CPT/HCPCS: 36430; 74177; 80048; 81001; 85025; 85610; 85730; 86850; 86900; 86901; 86920; 87077; 87086; 87186; 88305; 93005; 93970; 96361; 96374; 96375; C9113; C9132; J0171; J0744; J1940; J7030; J7050; P9016; Q9963; Q9967

== ENCOUNTER 2018-05-12 16:07 | Observation (INO) ==
--- NOTE | 2018-05-12 17:26 | ED ---
HPI General Chief Complaint: Altered Mental Status Stated Complaint: Poss AMS Time Seen by Provider: 05/12/18 17:12 Source: EMS Mode of arrival: ambulatory Limitations: no limitations History of Present Illness HPI narrative: 88 y/o female presents by ambulance after she was seen normal last night. Neighbor went to check on her this morning and she was sleeping in which was normal for her but when they went to check back on her this afternoon and she was still sleeping they called the ambulance. Her initial GCS was 8 but in route her GCS became a 14. Her daughter who lives with her is currently out of town. Patient now is what appears to be at her baseline and denies active complaints. Patient does not recall prior incident. Related Data Home Medications Medication Instructions Recorded Confirmed guanfacine 1 mg PO DAILY 05/13/18 05/13/18 losartan 100 mg PO DAILY 05/13/18 05/13/18 rivaroxaban [Xarelto] 20 mg PO DAILY 05/13/18 05/13/18 timolol 1 drop OPHTHALMIC (EYE) DAILY 05/13/18 05/13/18 Allergies Allergy/AdvReac Type Severity Reaction Status Date / Time penicillin G Allergy Severe diarrhea Verified 05/12/18 21:24 Review of Systems ROS: all other systems reviewed are negative PMFSH History History Provided By: Patient (tias on xarelto) Medical History Medical History Afib (Acute) Pacemaker (Acute) TIA (transient ischemic attack) (Acute) Social History Social History Substance History: No History of Abuse Second Hand Smoke Exposure: No Smoking Status: Never smoker How Often Do You Have a Drink Containing Alcohol: Never Recent Travel in [facility] within the Last 8 Weeks: No Recent Out of Country Travel within the Last 8 Weeks: No Exam Narrative Exam Narrative: GENERAL: 88 y/o female in no apparent distress SKIN: Focused skin assessment warm/dry. HEAD: Atraumatic. Normocephalic. EYES: Pupils equal and round pinpoint. No scleral icterus. No injection or drainage. ENT: No nasal bleeding or discharge. Mucous membranes pink and moist. NECK: Trachea midline. No JVD. CARDIOVASCULAR: Regular rate and rhythm. RESPIRATORY: No accessory muscle use. Clear to auscultation. Breath sounds equal bilaterally. GASTROINTESTINAL: Abdomen soft, non-tender, nondistended MUSCULOSKELETAL: No obvious deformities. No clubbing. No cyanosis. NEUROLOGICAL: Awake and alert to place, name, year. Motor grossly within normal limits. Normal speech. PSYCHIATRIC: Appropriate mood and affect; insight and judgment normal. Course Initial Documented Vital Signs Temperature 97.6 F 05/12/18 18:59 Pulse Rate 80 05/12/18 18:59 Respiratory Rate 18 05/12/18 18:59 Blood Pressure 190/81 H 05/12/18 18:59 Pulse Oximetry 97 05/12/18 18:59 Last Documented Vital Signs Temperature 99.3 F 05/14/18 16:00 Pulse Rate 60 05/14/18 16:00 Respiratory Rate 16 05/14/18 16:00 Blood Pressure 127/60 05/14/18 16:00 Pulse Oximetry 97 05/14/18 16:00 Sign Out Sign Out Data: Patient Sign Out occurred on 05/12/18 at 20:29. Patient's care was discussed, and care was transferred from Kandace Clemens MD to Estela Villegas. Sign Out Comment: follow workup and reevaluate Last updated by Kandace Clemens MD at 05/12/18 19:25 Post-Handoff Eval: Case was signed out by the previous ER physician. Patient was apparently found by her neighbour poorly responsive. She called 911. Patient was somnolent after arrival for 2-3 hours and now is GCS of 15. She is not sure what happened. Doesn not appear to be in any distress. She says she lives with her daughter who is currently out of town and will come back on Monday at 5-6 pm. Workup is essentially negative. I have decided to admit her for observation and patient is agreeable with that plan. Medical Decision Making MDM Narrative Medical decision making narrative: Will check blood work, imaging, urinalysis and reevaluate Medical Screen Exam Complete: Yes Emergency Medical Condition: Yes Differential Diagnosis Differential Diagnosis: TIA, hyponatremia, UTI Lab Data Result diagrams: 05/13/18 03:55 05/13/18 03:55 Lab Results 05/12/18 05/12/18 05/12/18 Range/Units 18:15 18:15 18:15 WBC 5.1 (4.0-11.0) th/mm3 RBC 4.11 (4.00-5.30) mil/mm3 Hgb 11.1 L (11.6-15.3) gm/dL Hct 33.8 L (35.0-46.0) % MCV 82.2 (80.0-100.0) fL MCH 27.0 (27.0-34.0) pg MCHC 32.8 (32.0-36.0) % RDW 14.9 (11.6-17.2) % Plt Count 286 (150-450) th/mm3 MPV 7.8 (7.0-11.0) fL Neut % (Auto) 79.2 H (16.0-70.0) % Lymph % (Auto) 14.8 (9.0-44.0) % [place] % (Auto) 5.4 (0.0-8.0) % Eos % (Auto) 0.2 (0.0-4.0) % Baso % (Auto) 0.4 (0.0-2.0) % Neut # (Auto) 4.1 (1.8-7.7) th/mm3 Lymph # (Auto) 0.8 L (1.0-4.8) th/mm3 [place] # (Auto) 0.3 (0.0-0.9) th/mm3 Eos # (Auto) 0.0 (0.0-0.4) th/mm3 Baso # (Auto) 0.0 (0.0-0.2) th/mm3 WBC Differential . Differential Comment Auto diff final Sodium 133 L (136-145) meq/L Potassium 3.8 (3.5-5.1) meq/L Chloride 96 L (98-107) meq/L Carbon Dioxide 30.1 (21.0-32.0) meq/L Anion Gap 7 (5-15) meq/L BUN 18 (7-18) mg/dL Creatinine 0.76 (0.50-1.00) mg/dL Estimated GFR 72 L (>89) mL/min Random Glucose 105 (74-106) mg/dL Calcium 8.4 L (8.5-10.1) mg/dL Magnesium 1.9 Cancelled (1.5-2.5) mg/dL Total Bilirubin (0.2-1.0) mg/dL AST (15-37) U/L ALT (10-53) U/L Alkaline Phosphatase (45-117) U/L Total Protein (6.4-8.2) g/dL Albumin (3.4-5.0) g/dL Urine Color (Yellw/Straw) Urine Clarity (Clear) Urine pH (5.0-8.5) Ur Specific [place] (1.002-1.035) Urine Protein (Neg-Trace) mg/dL Urine Glucose (UA) (Negative) mg/dL Urine Ketones (Negative) mg/dL Urine Occult Blood (Negative) Urine Nitrate (Negative) Urine Bilirubin (Negative) Urine Urobilinogen (Less than 2) mg/dL Ur Leukocyte Esterase (Negative) Urine RBC (0-3) /hpf Urine WBC (0-5) /hpf Urine Bacteria (None) /hpf Urine Mucus (Occasional) /lpf Micro UA Comment Ur Microscopic Review Urine Culture Comments 05/12/18 05/13/18 05/13/18 Range/Units 20:36 03:55 03:55 WBC 4.6 (4.0-11.0) th/mm3 RBC 3.70 L (4.00-5.30) mil/mm3 Hgb 10.4 L (11.6-15.3) gm/dL Hct 30.2 L (35.0-46.0) % MCV 81.5 (80.0-100.0) fL MCH 28.1 (27.0-34.0) pg MCHC 34.4 (32.0-36.0) % RDW 15.1 (11.6-17.2) % Plt Count 256 (150-450) th/mm3 MPV 7.6 (7.0-11.0) fL Neut % (Auto) 67.5 (16.0-70.0) % Lymph % (Auto) 21.2 (9.0-44.0) % [place] % (Auto) 10.0 H (0.0-8.0) % Eos % (Auto) 0.7 (0.0-4.0) % Baso % (Auto) 0.6 (0.0-2.0) % Neut # (Auto) 3.1 (1.8-7.7) th/mm3 Lymph # (Auto) 1.0 (1.0-4.8) th/mm3 [place] # (Auto) 0.5 (0.0-0.9) th/mm3 Eos # (Auto) 0.0 (0.0-0.4) th/mm3 Baso # (Auto) 0.0 (0.0-0.2) th/mm3 WBC Differential . Differential Comment Auto diff final Sodium 137 (136-145) meq/L Potassium 3.4 L (3.5-5.1) meq/L Chloride 100 (98-107) meq/L Carbon Dioxide 27.5 (21.0-32.0) meq/L Anion Gap 10 (5-15) meq/L BUN 14 (7-18) mg/dL Creatinine 0.61 (0.50-1.00) mg/dL Estimated GFR Greater than 89 (>89) mL/min Random Glucose 84 (74-106) mg/dL Calcium 8.2 L (8.5-10.1) mg/dL Magnesium (1.5-2.5) mg/dL Total Bilirubin 0.4 (0.2-1.0) mg/dL AST 22 (15-37) U/L ALT 15 (10-53) U/L Alkaline Phosphatase 51 (45-117) U/L Total Protein 6.8 (6.4-8.2) g/dL Albumin 3.4 (3.4-5.0) g/dL Urine Color Colorless (Yellw/Straw) Urine Clarity Clear (Clear) Urine pH 7.0 (5.0-8.5) Ur Specific [place] 1.008 (1.002-1.035) Urine Protein Negative (Neg-Trace) mg/dL Urine Glucose (UA) Negative (Negative) mg/dL Urine Ketones 20 (Negative) mg/dL Urine Occult Blood Small H (Negative) Urine Nitrate Negative (Negative) Urine Bilirubin Negative (Negative) Urine Urobilinogen Less than 2 (Less than 2) mg/dL Ur Leukocyte Esterase Negative (Negative) Urine RBC 3 (0-3) /hpf Urine WBC 1 (0-5) /hpf Urine Bacteria Rare H (None) /hpf Urine Mucus Few H (Occasional) /lpf Micro UA Comment Culture not ind Ur Microscopic Review Not Reportable Urine Culture Comments Culture not ind Imaging Data Radiologist's impression: Head CT 05/12/18 17:19 CONCLUSION: 1. No acute intracranial abnormality. 2. Chronic white matter changes. 3. Old right basal ganglia lacunar infarct. . Discharge Plan Discharge Disposition Patient Disposition: W/Home Health Service Discharge Condition Condition: Stable Discharge Order Discharge Orders: Discharge Order (Routine); Ordered 05/14/18 Ordered By: Marti Interiano Discharge Details Anticipated Discharge Date: 05/14/18 Physicians Team ED Provider: Estela Villegas Primary Care Provider: UNKNOWN, Attending Provider: Misa Parmar Status ED Status: Left Department Discharge Information Discharge Date/Time: 05/12/18 23:22
--- NOTE | 2018-05-12 18:28 | CT ---
EXAM DATE: 05/12/2018 6:13 PM EST AGE/SEX: 88 years / Female INDICATIONS: Altered mental status. CLINICAL DATA: This is the patient's initial encounter. Patient reports that signs and symptoms have been present for 1 day and indicates a pain score of Nonresponsive. MEDICAL/SURGICAL HISTORY: Non-responsive. Non-responsive. RADIATION DOSE: 50.43 CTDI (mGy) COMPARISON: [facility], CT BRAIN W/O CONTRAST, 04/10/2012. . TECHNIQUE: CT of the head without contrast. Using automated exposure control and adjustment of the mA and/or kV according to patient size, radiation dose was kept as low as reasonably achievable to ob tain optimal diagnostic quality images. DICOM format image data is available electronically for revi ew and comparison. FINDINGS: Cerebrum: The ventricles are normal for age. No evidence of midline shift, mass lesion, hemorrhage or acute infarction. No extraaxial fluid collections are seen. Chronic low-attenuation again seen in the bilateral periventricular white matter. 12 mm old lacunar infarct of the right basal ganglia unc hanged. No evidence of an acute ischemic event. Posterior Fossa: The cerebellum and brainstem are intact. The 4th ventricle is midline. The cerebe llopontine angle is unremarkable. Extracranial: The visualized portion of the orbits is intact. Skull: The calvaria is intact. No evidence of skull fracture. CONCLUSION: 1. No acute intracranial abnormality. 2. Chronic white matter changes. 3. Old right basal ganglia lacunar infarct. . Electronically signed by: Juan Nicole MD 05/12/2018 6:26 PM EST
[2018-05-12 19:27] LABS: Baso % (Auto) 0.4 % (0.0-2.0); Eos % (Auto) 0.2 % (0.0-4.0); Hematocrit 33.8 % (35.0-46.0); Hemoglobin 11.1 gm/dL (11.6-15.3); Lymph # (Auto) 0.8 th/mm3 (1.0-4.8); Lymph % (Auto) 14.8 % (9.0-44.0); Mean Corpuscular HGB Conc 32.8 % (32.0-36.0); Mean Corpuscular Volume 82.2 fL (80.0-100.0); Mean Platelet Volume 7.8 fL (7.0-11.0); Mono # (Auto) 0.3 th/mm3 (0.0-0.9); Mono % (Auto) 5.4 % (0.0-8.0); Neut # (Auto) 4.1 th/mm3 (1.8-7.7); Neut % (Auto) 79.2 % (16.0-70.0); Platelet Count 286 th/mm3 (150-450); Red Blood Count 4.11 mil/mm3 (4.00-5.30); Red Cell Distribution Width 14.9 % (11.6-17.2); White Blood Count 5.1 th/mm3 (4.0-11.0)
[2018-05-12 19:49] LABS: Calcium 8.4 mg/dL (8.5-10.1); Carbon Dioxide 30.1 meq/L (21.0-32.0); Magnesium 1.9 mg/dL (1.5-2.5); Potassium 3.8 meq/L (3.5-5.1)
[2018-05-12] MEDS ORDERED: Bisacodyl 10 MG Supp RECTAL PRN (20:56)
[2018-05-12] MEDS ORDERED: Acetaminophen 325 MG Tablet PO PRN (20:56)
--- NOTE | 2018-05-12 20:57 | P.HPIM ---
History of Present Illness Primary Care Physician: UNKNOWN History of Present Illness: This is a an 88-year-old female with a PMH of HTN, A. fib on Eliquis and h/o TIA who was brought to the ER by EMS for AMS. Per report, pt lives at home alone, neighbor checked in on her this morning and found her sleeping, neighbor went back in the afternoon to check on her again and pt was still sleeping. On arrival to ER, pt very lethargic, answering minimally. Currently mental status improved. Pt is poor historian, but states she "couldn't remember my name or my social security number". Denies any other complaints, no weakness, no fever/ chills, no chest pain or SOB. On arrival, BP 190/81, HR 80, O2 sat 97% on RA, Afebrile. CBC essentially unremarkable. Chemistry unremarkable. UA negative for UTI. 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 - Diagnosis (1) Encephalopathy (2) Afib (3) HTN (hypertension) Review of Systems PAST FAMILY HISTORY: Reviewed. No h/o DM or CAD All other systems reviewed negative except as stated in HPI PMFSH - History History Provided By: Patient - Medical History Medical History: Medical History (Last Updated 05/12/18 @ 18:59 by Juan Schmitd) Afib Pacemaker TIA (transient ischemic attack) - Tobacco History Smoking Status: Unknown if ever smoked - Alcohol History How Often Do You Have a Drink Containing Alcohol: Unable to Obtain - Substance Use History Substance History: Unable to Obtain - Travel History Recent Travel in the [facility] Within the Last 8 Weeks: No Recent Travel Out of the Country Within the Last 8 Weeks: No - Immunization History Tetanus Immunization: Unsure Medications and Allergies Active Medications: Active Medications Sodium Chloride (Ns Inj) 500 mls @ 1,000 mls/hr IV.SIG BOLUS MICHELLE Stop: 05/12/18 21:29 Sodium Chloride (Ns Flush) 2 ml IV.FLUSH PRN PRN PRN Reason: FLUSH AFTER USING IV ACCESS Allergies Allergy/AdvReac Type Severity Reaction Status Date / Time penicillin G Allergy Severe diarrhea Verified 05/12/18 21:24 Home Medications Medication Instructions Recorded Confirmed Type apixaban [Eliquis] 5 mg PO BID 05/12/18 05/12/18 History Exam Vital signs: Vital Signs 05/12/18 18:59 05/12/18 19:02 Temperature 97.6 F Pulse Rate 80 Respiratory Rate 18 Blood Pressure 190/81 H Pulse Oximetry 97 98 Intake & Output 05/12/18 05/12/18 05/13/18 06:59 18:59 06:59 Weight 47.627 kg Narrative: PE: GENERAL: Pleasant elderly white female in no acute distress. Very [place]. SKIN: Focused skin assessment warm and dry. HEENT: PERRLA, EOMI. No scleral icterus or conjunctival pallor. No lid lag or facial droop. CARDIOVASCULAR: Regular rate and rhythm. No obvious murmurs to auscultation. No chest tenderness to palpation. RESPIRATORY: No obvious rhonchi or wheezing. Clear to auscultation. Breath sounds equal bilaterally. GASTROINTESTINAL: Abdomen soft, non-tender, nondistended. BS normal. MUSCULOSKELETAL: Extremities without clubbing, cyanosis, or edema. No obvious deformities. NEUROLOGICAL: Awake, alert, oriented to person/place. No focal neurologic deficits. Moving both upper and lower extremities spontaneously. PSYCHIATRIC: Appropriate mood and affect. Insight and judgment normal. Results - Labs CBC & Chem 7: 05/12/18 18:15 05/12/18 18:15 Labs: Short CBC 05/12/18 Range/Units 18:15 WBC 5.1 (4.0-11.0) th/mm3 Hgb 11.1 L (11.6-15.3) gm/dL Hct 33.8 L (35.0-46.0) % Plt Count 286 (150-450) th/mm3 BMP 05/12/18 18:15 Sodium 133 L Potassium 3.8 Chloride 96 L Carbon Dioxide 30.1 BUN 18 Creatinine 0.76 Calcium 8.4 L - Imaging Impressions Head CT 05/12/18 17:19 CONCLUSION: 1. No acute intracranial abnormality. 2. Chronic white matter changes. 3. Old right basal ganglia lacunar infarct. . Caprini VTE Risk Assessment Caprini VTE Risk Assessment: Moderate/High Risk (score >= 2) Caprini Risk Assessment Model: Point Value = 1 Point Value = 2 Point Value = 3 Point Value = 5 Age 41-60 Minor surgery BMI > 25 kg/m2 Swollen legs Varicose veins or History of unexplained or recurrent spontaneous Oral contraceptives or hormone replacement Sepsis (< 1 month) Serious lung disease, including pneumonia (< 1 month) Abnormal pulmonary function Acute myocardial infarction Congestive heart failure (< 1 month) History of inflammatory bowel disease Medical patient at bed rest Age 61-74 Arthroscopic surgery Major open surgery (> 45 min) Laparoscopic surgery (> 45 min) Malignancy Confined to bed (> 72 hours) Immobilizing plaster cast Central venous access Age >= 75 History of VTE Family history of VTE Factor V Leiden Prothrombin [id number] Lupus anticoagulant Anticardiolipin antibodies Elevated serum homocysteine Heparin-induced thrombocytopenia Other congenital or acquired thrombophilia Stroke (< 1 month) Elective arthroplasty Hip, pelvis, or leg fracture Acute spinal cord injury (< 1 month) Prophylaxis Regimen: Total Risk Factor Score Risk Level Prophylaxis Regimen 0-1 Low Early ambulation 2 Moderate Order ONE of the following: *Sequential Compression Device (SCD) *Heparin 5000 units SQ BID 3-4 Higher Order ONE of the following medications: *Heparin 5000 units SQ TID *Enoxaparin/Lovenox 40 mg SQ daily (WT < 150 kg, CrCl > 30 mL/min) *Enoxaparin/Lovenox 30 mg SQ daily (WT < 150 kg, CrCl > 10-29 mL/min) *Enoxaparin/Lovenox 30 mg SQ BID (WT < 150 kg, CrCl > 30 mL/min) AND/OR *Sequential Compression Device (SCD) 5 or more Highest Order ONE of the following medications: *Heparin 5000 units SQ TID (Preferred with Epidurals) *Enoxaparin/Lovenox 40 mg SQ daily (WT < 150 kg, CrCl > 30 mL/min) *Enoxaparin/Lovenox 30 mg SQ daily (WT < 150 kg, CrCl > 10-29 mL/min) *Enoxaparin/Lovenox 30 mg SQ BID (WT < 150 kg, CrCl > 30 mL/min) AND *Sequential Compression Device (SCD) Assessment and Plan - Assessment (1) Encephalopathy Code(s): G93.40 - Encephalopathy, unspecified Status: Acute (2) Afib Code(s): I48.91 - Unspecified atrial fibrillation Status: Acute (3) HTN (hypertension) Code(s): I10 - Essential (primary) hypertension Status: Acute - Plan A/P: 1. Encephalopathy: acute AMS per neighbors, +lethargic on arrival, currently back to what appears to be her baseline, oriented to person/place. Pt w/ minimal recollection of events, except states she could not remember her name or SS number. CT Head w/ old CVA, no acute findings. Unsafe d/c home at this time as pt lives alone, daughter out of town but will arrive on Monday. Check MRI to eval for underlying CVA. U/a negative for UTI. Admit for Observation. Neuro checks. PT for eval/tx 2. A-fib: Chronic. On Eliquis, will resume. 3. HTN: Uncontrolled, BP 190's, antihypertensives as needed, monitor BP 4. DVT Prophylaxis: Eliquis 5. Social work for d/c planning as needed. 6. Case discussed w/ ER physician at length, labs/records/imaging reviewed by me
[2018-05-12] MEDS ORDERED: Sodium Chloride 0.9% 2 ML Flush PRN IV.FLUSH (21:00)
[2018-05-12] MEDS ORDERED: Sodium Chlor 0.9% Inj 500 ML IV.SIG SCH (21:00)
[2018-05-12 21:11] LABS: Bacteria,Urine Rare /hpf; Bilirubin,Urine Negative (Negative); Clarity,Urine Clear (Clear); Color,Urine Colorless (Yellw/Straw); Glucose,Urine (UA) Negative (Negative); Leukocyte Esterase,Urine Negative (Negative); Mucus,Urine Few /lpf (Occasional); Nitrite,Urine Negative (Negative); Specific Gravity,Urine 1.008 (1.002-1.035)
[2018-05-12] MEDS ORDERED: Metoprolol Inj 5 MG/5 ML Vial IV.PUSH ONE (21:27)
[2018-05-12] MEDS: Sod Chloride 0.9% Inj 1,000 ML IV.CONT SCH (21:36)
[2018-05-12] MEDS: Senna/Docusate Sodium 8.6/50 MG Tablet PO SCH (22:01)
[2018-05-12] MEDS: Sodium Chloride 0.9% 2 ML Flush BID IV.FLUSH SCH (22:02)
[2018-05-13] MEDS: Sod Chloride 0.9% Inj 1,000 ML IV.CONT SCH ×3 (02:41→13:00)
[2018-05-13 04:42] LABS: Baso % (Auto) 0.6 % (0.0-2.0); Eos % (Auto) 0.7 % (0.0-4.0); Hematocrit 30.2 % (35.0-46.0); Hemoglobin 10.4 gm/dL (11.6-15.3); Lymph % (Auto) 21.2 % (9.0-44.0); Mean Corpuscular HGB Conc 34.4 % (32.0-36.0); Mean Corpuscular Hemoglobin 28.1 pg (27.0-34.0); Mean Corpuscular Volume 81.5 fL (80.0-100.0); Mean Platelet Volume 7.6 fL (7.0-11.0); Mono # (Auto) 0.5 th/mm3 (0.0-0.9); Neut # (Auto) 3.1 th/mm3 (1.8-7.7); Neut % (Auto) 67.5 % (16.0-70.0); Platelet Count 256 th/mm3 (150-450); Red Cell Distribution Width 15.1 % (11.6-17.2); White Blood Count 4.6 th/mm3 (4.0-11.0)
[2018-05-13 05:07] LABS: Albumin 3.4 g/dL (3.4-5.0); Anion Gap 10 meq/L (5-15); Aspartate Aminotransferase 22 U/L (15-37); Blood Urea Nitrogen 14 mg/dL (7-18); Calcium 8.2 mg/dL (8.5-10.1); Carbon Dioxide 27.5 meq/L (21.0-32.0); Chloride 100 meq/L (98-107); Glomerular Filtration Rate Greater Than 89 mL/min (>89); Glucose,Random 84 mg/dL (74-106); Potassium 3.4 meq/L (3.5-5.1); Sodium 137 meq/L (136-145)
[2018-05-13 05:08] LABS: Alanine Aminotransferase 15 U/L (10-53)
[2018-05-13 05:10] LABS: Alkaline Phosphatase 51 U/L (45-117); Total Protein 6.8 g/dL (6.4-8.2)
[2018-05-13] MEDS: Sodium Chloride 0.9% 2 ML Flush BID IV.FLUSH SCH ×2 (10:58→21:15)
[2018-05-13] MEDS: Senna/Docusate Sodium 8.6/50 MG Tablet PO SCH ×2 (10:58→21:31)
[2018-05-13 12:07] VITALS: RESP 16
--- NOTE | 2018-05-13 17:18 | P.PN ---
Subjective Interval history: Patient is seen lying quietly in bed. She is oriented to self, year and location. She tells me that she needs to get home to be with her daughter who is returning from a trip. Somewhat poor historian. Denies any chest pain or shortness of breath. No nausea vomiting or diarrhea. No dizziness or syncope. Physical Exam Vital signs: Vital Signs 05/12/18 18:59 05/12/18 19:02 05/12/18 21:23 Temperature 97.6 F Pulse Rate 80 71 Respiratory Rate 18 18 Blood Pressure 190/81 H 191/84 H Pulse Oximetry 97 98 96 05/12/18 22:04 05/12/18 22:21 05/12/18 22:38 Temperature Pulse Rate 60 64 64 Respiratory Rate 16 16 16 Blood Pressure 190/84 H 185/81 H 176/76 H Pulse Oximetry 97 97 97 05/12/18 23:01 05/12/18 23:15 05/13/18 04:00 Temperature 99.3 F 98.5 F Pulse Rate 64 75 66 Respiratory Rate 16 16 16 Blood Pressure 168/81 H 192/70 H 172/74 H Pulse Oximetry 97 96 95 05/13/18 08:00 05/13/18 12:00 05/13/18 16:00 Temperature 98.0 F 97.4 F L 98.8 F Pulse Rate 59 L 66 63 Respiratory Rate 14 16 16 Blood Pressure 166/75 H 158/58 H 146/53 H Pulse Oximetry 97 98 96 Intake & Output 05/12/18 05/13/18 05/13/18 18:59 06:59 18:59 Intake Total 1740 / 1740 Balance 1740 / 1740 Weight 47.627 kg 44.2 kg Intake: IV 1500 / 1500 NS Inj 1,000 ML @ 100 mls/hr IV 1000 / 1000 .CONT .Q10H MICHELLE Rx#:[id number] NS Inj 500 ML @ 1000 mls/hr IV. 500 / 500 SIG BOLUS MICHELLE Rx#:[id number] Oral 240 / 240 Other: # Voids 3 Date of Last Bowel Movement 05/12/18 05/12/18 Weight On Admission 44.2 kg Narrative: GENERAL: Pleasant elderly white female in no acute distress. Very [place]. SKIN: Focused skin assessment warm and dry. HEENT: PERRLA, EOMI. No scleral icterus or conjunctival pallor. No lid lag or facial droop. CARDIOVASCULAR: Regular rate and rhythm. No obvious murmurs to auscultation. No chest tenderness to palpation. RESPIRATORY: No obvious rhonchi or wheezing. Clear to auscultation. Breath sounds equal bilaterally. GASTROINTESTINAL: Abdomen soft, non-tender, nondistended. BS normal. MUSCULOSKELETAL: Extremities without clubbing, cyanosis, or edema. No obvious deformities. NEUROLOGICAL: Awake, alert, oriented to person/place. No focal neurologic deficits. Moving both upper and lower extremities spontaneously. PSYCHIATRIC: Appropriate mood and affect. Poor historian. Results - Labs CBC & Chem 7: 05/13/18 03:55 05/13/18 03:55 Laboratory Results - last 24 hr 05/12/18 05/12/18 05/12/18 18:15 18:15 18:15 WBC 5.1 RBC 4.11 Hgb 11.1 L Hct 33.8 L MCV 82.2 MCH 27.0 MCHC 32.8 RDW 14.9 Plt Count 286 MPV 7.8 Neut % (Auto) 79.2 H Lymph % (Auto) 14.8 [place] % (Auto) 5.4 Eos % (Auto) 0.2 Baso % (Auto) 0.4 Neut # (Auto) 4.1 Lymph # (Auto) 0.8 L [place] # (Auto) 0.3 Eos # (Auto) 0.0 Baso # (Auto) 0.0 WBC Differential . Differential Comment Auto diff final Sodium 133 L Potassium 3.8 Chloride 96 L Carbon Dioxide 30.1 Anion Gap 7 BUN 18 Creatinine 0.76 Estimated GFR 72 L Random Glucose 105 Calcium 8.4 L Magnesium 1.9 Cancelled Total Bilirubin AST ALT Alkaline Phosphatase Total Protein Albumin Urine Color Urine Clarity Urine pH Ur Specific [place] Urine Protein Urine Glucose (UA) Urine Ketones Urine Occult Blood Urine Nitrate Urine Bilirubin Urine Urobilinogen Ur Leukocyte Esterase Urine RBC Urine WBC Urine Bacteria Urine Mucus Micro UA Comment Ur Microscopic Review Urine Culture Comments 05/12/18 05/13/18 05/13/18 20:36 03:55 03:55 WBC 4.6 RBC 3.70 L Hgb 10.4 L Hct 30.2 L MCV 81.5 MCH 28.1 MCHC 34.4 RDW 15.1 Plt Count 256 MPV 7.6 Neut % (Auto) 67.5 Lymph % (Auto) 21.2 [place] % (Auto) 10.0 H Eos % (Auto) 0.7 Baso % (Auto) 0.6 Neut # (Auto) 3.1 Lymph # (Auto) 1.0 [place] # (Auto) 0.5 Eos # (Auto) 0.0 Baso # (Auto) 0.0 WBC Differential . Differential Comment Auto diff final Sodium 137 Potassium 3.4 L Chloride 100 Carbon Dioxide 27.5 Anion Gap 10 BUN 14 Creatinine 0.61 Estimated GFR Greater than 89 Random Glucose 84 Calcium 8.2 L Magnesium Total Bilirubin 0.4 AST 22 ALT 15 Alkaline Phosphatase 51 Total Protein 6.8 Albumin 3.4 Urine Color Colorless Urine Clarity Clear Urine pH 7.0 Ur Specific [place] 1.008 Urine Protein Negative Urine Glucose (UA) Negative Urine Ketones 20 Urine Occult Blood Small H Urine Nitrate Negative Urine Bilirubin Negative Urine Urobilinogen Less than 2 Ur Leukocyte Esterase Negative Urine RBC 3 Urine WBC 1 Urine Bacteria Rare H Urine Mucus Few H Micro UA Comment Culture not ind Ur Microscopic Review Not Reportable Urine Culture Comments Culture not ind - Imaging Impressions Head CT 05/12/18 17:19 CONCLUSION: 1. No acute intracranial abnormality. 2. Chronic white matter changes. 3. Old right basal ganglia lacunar infarct. . Assessment and Plan - Assessment (1) Encephalopathy Code(s): G93.40 - Encephalopathy, unspecified Status: Acute (2) Afib Code(s): I48.91 - Unspecified atrial fibrillation Status: Acute (3) HTN (hypertension) Code(s): I10 - Essential (primary) hypertension Status: Acute - Plan Patient is an 88-year-old female PMH of HTN, A. fib on Eliquis and h/o TIA who was brought in for evaluation of acute AMS after she was found by neighbors to be very lethargic and confused. Encephalopathy: -Moderately improved -Unclear etiology - CT neg; MRI pending; UA neg; labs grossly normal A-fib: Chronic. -Initially thought to be on Eliquis however pt pharmacy confirms Xarelto. Restarted. HTN: -Restart home medications as per pts pharmacy DVT Prophylaxis: On Xarelto Discharge planning: Patient states that she lives with daughter. This will need to be confirmed. May need oncology social worker follow-up.
[2018-05-14] MEDS: Sod Chloride 0.9% Inj 1,000 ML IV.CONT SCH (04:41)
[2018-05-14] MEDS ORDERED: Timolol 0.5% Drops 5 ML Bottle EACH EYE SCH (09:00)
[2018-05-14] MEDS ORDERED: Rivaroxaban 20 MG Tablet PO SCH (09:00)
--- NOTE | 2018-05-14 10:28 | P.PN ---
Subjective Interval history: Follow up for AMS:. Patient seen and examined, awake, alert oriented x2. Indicates that that she was brought in because she was lightheaded, states that prior to that she had stayed up at night reading and then was sleeping very hard. She has no complaints. No chest pain, no shortness of breath. No palpitations. Indicates that her daughter will be coming back from out of town today. Physical Exam Vital signs: Vital Signs 05/13/18 12:00 05/13/18 16:00 05/13/18 20:00 Temperature 97.4 F L 98.8 F 97.7 F Pulse Rate 66 63 72 Respiratory Rate 16 16 16 Blood Pressure 158/58 H 146/53 H 151/64 H Pulse Oximetry 98 96 97 05/14/18 00:00 05/14/18 04:00 05/14/18 08:00 Temperature 98.2 F 98.5 F 98.1 F Pulse Rate 74 86 79 Respiratory Rate 16 16 16 Blood Pressure 165/69 H 172/65 H 132/57 L Pulse Oximetry 96 95 96 Intake & Output 05/13/18 05/14/18 05/14/18 18:59 06:59 18:59 Intake Total 240 / 240 360 / 360 Output Total 550 / 550 Balance 240 / 240 -190 / -190 Intake: Oral 240 / 240 360 / 360 Output: Urine 550 / 550 Other: # Voids 3 1 Date of Last Bowel Movement 05/12/18 05/12/18 Narrative: GENERAL: Pleasant elderly white female in no acute distress. Very [place]. SKIN: Focused skin assessment warm and dry. HEENT: PERRLA, EOMI. No scleral icterus or conjunctival pallor. No lid lag or facial droop. CARDIOVASCULAR: Regular rate and rhythm. No obvious murmurs to auscultation. No chest tenderness to palpation. RESPIRATORY: No obvious rhonchi or wheezing. Clear to auscultation. Breath sounds equal bilaterally. GASTROINTESTINAL: Abdomen soft, non-tender, nondistended. BS normal. MUSCULOSKELETAL: Extremities without clubbing, cyanosis, or edema. No obvious deformities. NEUROLOGICAL: Awake, alert, oriented to person/place. No focal neurologic deficits. Moving both upper and lower extremities spontaneously. PSYCHIATRIC: Appropriate mood and affect. Poor historian. 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 fib on Eliquis and h/o TIA who was brought in for evaluation of acute AMS after she was found by neighbors to be very lethargic and confused. Acute Encephalopathy, etiology unclear. -Improved, patient appears to be at baseline. Somewhat forgetful about event but otherwise oriented to self, place, year, month -CT of the head negative -Unable to do brain MRI, has a pacemaker A-fib: Chronic. History of pacemaker -Continue with Xarelto HTN: -Continue with Cozaar DVT Prophylaxis: On Xarelto PT eval, recommends outpatient PT Daughter arriving late afternoon, will consult case management for home health care Discharge later today Follow-up with PCP in 2 weeks Her healthy diet Activity as tolerated Code Status: DNR Discussed Condition With: RN, pt, CM Discharge Planning: Home with [facility] today (2) Afib Qualifiers: Atrial fibrillation type: unspecified Qualified Code(s): I48.91 - Unspecified atrial fibrillation (3) HTN (hypertension) Qualifiers: Hypertension type: essential hypertension Qualified Code(s): I10 - Essential (primary) hypertension
--- NOTE | 2018-05-14 10:30 | P.DCO ---
- Diagnosis (1) Encephalopathy Status: Acute - Home Health Nursing Order: Medical education, Nursing assessment with vital signs - [facility] [employer] Order: To evaluate: Living conditions/environment Order: To provide: Long range planning - Case Management Consult Yes - Certification I have seen patient Bernadine Bailey on 05/14/18. My clinical findings support the need for the requested home health care services because: Elderly pt. found altered, unable to care for self Limited ability to care for self I certify that my clinical findings support that this patient is homebound because: Unsafe to leave home unassisted
[2018-05-14] MEDS ORDERED: Potassium Chloride 25 MEQ Effervescent Tablet PO ONE (11:24)
[2018-05-14] MEDS: Senna/Docusate Sodium 8.6/50 MG Tablet PO SCH (11:33)
[2018-05-14] MEDS: Sodium Chloride 0.9% 2 ML Flush BID IV.FLUSH SCH (11:34)
[2018-05-14 12:20] VITALS: O2SAT 97
--- NOTE | 2018-05-14 15:50 | P.DS ---
Date of admission: 05/12/18 20:59 Primary care physician: UNKNOWN Attending physician on discharge: Misa Parmar Anticipated date of discharge: 05/14/18 Brief History from admission: This is a an 88-year-old female with a PMH of HTN, A. fib on Eliquis and h/o TIA who was brought to the ER by EMS for AMS. Per report, pt lives at home alone, neighbor checked in on her this morning and found her sleeping, neighbor went back in the afternoon to check on her again and pt was still sleeping. On arrival to ER, pt very lethargic, answering minimally. Currently mental status improved. Pt is poor historian, but states she "couldn't remember my name or my social security number". Denies any other complaints, no weakness, no fever/ chills, no chest pain or SOB. On arrival, BP 190/81, HR 80, O2 sat 97% on RA, Afebrile. CBC essentially unremarkable. Chemistry unremarkable. UA negative for UTI. 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 DS: Diagnosis - Discharge Diagnosis (1) Encephalopathy Status: Acute (2) Afib Status: Chronic (3) HTN (hypertension) Status: Chronic (4) Hx TIA/stroke w/o resid Status: Chronic DS: Summary Hospital Course: This is a an 88-year-old female with a PMH of HTN, A. fib on Eliquis and h/o TIA who was brought to the ER by EMS for AMS. Patient was found lethargic by neighbor. Patient lives with daughter who was out of town. She was brought to the emergency room, poor historian. CT of the head negative. No evidence of infection. Patient's blood pressure was elevated. Patient symptoms improve, she was back to baseline. Unable to do brain MRI because of history of pacemaker. She was continued on home medications. Case management was consulted for home health. Patient was ambulated by physical therapy. Patient was discharged home in stable condition. - Time Spent with Patient Total time spent providing and/or coordinating discharge services: Less than 30 minutes - Quality: VTE Deep Vein Thrombosis/Pulmonary Embolism Present on Admission: No Exam Vital signs: Vital Signs 05/13/18 16:00 05/13/18 20:00 05/14/18 00:00 Temperature 98.8 F 97.7 F 98.2 F Pulse Rate 63 72 74 Respiratory Rate 16 16 16 Blood Pressure 146/53 H 151/64 H 165/69 H Pulse Oximetry 96 97 96 05/14/18 04:00 05/14/18 08:00 05/14/18 12:00 Temperature 98.5 F 98.1 F 97.6 F Pulse Rate 86 79 67 Respiratory Rate 16 16 16 Blood Pressure 172/65 H 132/57 L 134/55 L Pulse Oximetry 95 96 97 Intake & Output 05/13/18 05/14/18 05/14/18 18:59 06:59 18:59 Intake Total 240 / 240 360 / 360 Output Total 550 / 550 Balance 240 / 240 -190 / -190 Intake: Oral 240 / 240 360 / 360 Output: Urine 550 / 550 Other: # Voids 3 1 Date of Last Bowel Movement 05/12/18 05/12/18 Results Procedures completed during hospitalization: none - Impressions ITS Impressions Head CT 05/12/18 17:19 CONCLUSION: 1. No acute intracranial abnormality. 2. Chronic white matter changes. 3. Old right basal ganglia lacunar infarct. . Discharge Plan - Discharge Disposition Patient Disposition: /Home Health Service - Discharge Condition Condition: Stable - Discharge Order Discharge Orders: Discharge Order (Routine); Ordered 05/14/18 Ordered By: Marti Interiano - Discharge Details Anticipated Discharge Date: 05/14/18 - Physicians Team Primary Care Provider: UNKNOWN, Attending Provider: Misa Parmar
[2018-05-14 16:02] VITALS: BP 127/60; PULSE 60; TEMP 99.3
== END 2018-05-14 22:20 | disposition home health service (06) ==
LOC: NEPC 16:07 → NEDA 16:07 → NEPGCP 23:15
PROVIDERS: ADMIT Family Medicine; ATTEND Family Medicine